=== PATIENT | male | born 1945 | race African-American/Black ===

== ENCOUNTER 2016-08-07 18:10 | Inpatient (IN) | payer MEDICARE, MEDICAID ==
[2016-08-07] MEDS ORDERED: NS 0.9% 1000 ML* 1,000 ML IV ONE ×3 (18:45→22:47)
[2016-08-07] MEDS ORDERED: cefTRIAXone(*) 1 GM in NS 0.9% 50 ML* 50 ML IVPB ONE (18:45)
[2016-08-07] MEDS ORDERED: Acetaminophen TAB* 325 MG PO ONE (18:45)
[2016-08-07 19:08] LABS: Hematocrit 41 % (42-52); Hemoglobin 13.5 g/dl (14.0-18.0); Mean Corpuscular HGB Conc 33 g/dl (31-36); Mean Corpuscular Hemoglobin 31 pg (27-31); Mean Corpuscular Volume 93 fL (80-94); Mean Platelet Volume 10 um3 (7.4-10.4); Red Blood Count 4.35 10^6/ul (4.0-5.4); Red Cell Distribution Width 13 % (10.5-15); White Blood Count 7.4 10^3/ul (3.5-10.8)
--- NOTE | 2016-08-07 19:16 | RAD ---
HISTORY: Fever COMPARISONS: December 07, 2014 VIEWS:1: Single frontal portable view of the chest at 7:11 PM FINDINGS: LINES AND TUBES: None. CARDIOMEDIASTINAL SILHOUETTE: The cardiomediastinal silhouette is normal for portable technique. PLEURA: The costophrenic angles are sharp. No pleural abnormalities are noted. LUNG PARENCHYMA: There is hyperinflation. ABDOMEN: The upper abdomen is clear. There is no subphrenic gas. BONES AND SOFT TISSUES: No bone or soft tissue abnormalities are noted. IMPRESSION: HYPERINFLATION CONSISTENT WITH COPD. NO ACTIVE CARDIOPULMONARY DISEASE.
[2016-08-07 19:24] LABS: Albumin 3.6 g/dL (3.2-5.2); BUN/Creatinine Ratio 20.2 (8-20); C Reactive Protein 19.91 mg/L (< 5.00); Calcium 9.1 mg/dL (8.6-10.3); EGFR African American 107.8 (>60); EGFR Non-African American 83.8 (>60); Globulin 4.7 g/dL (2-4); Potassium 4.5 mmol/L (3.5-5.0); Total Bilirubin 0.6 mg/dL (0.2-1.0); Total Protein 8.3 g/dL (6.4-8.9)
[2016-08-07 20:02] LABS: Erythrocyte Sed Rate 72 mm/Hr (0-40)
[2016-08-07 21:04] LABS: Urine Bacteria Absent (Absent); Urine Bilirubin Negative (Negative); Urine Glucose Negative (Negative); Urine Nitrite Negative (Negative)
[2016-08-07] MEDS ORDERED: Ondansetron INJ* 2 MG/ML VIAL IV PRN (22:47)
[2016-08-07] MEDS ORDERED: Al Hydrox/Mg Hydrox/Simet LIQ* 30 ML UDC PO PRN (22:47)
[2016-08-07] MEDS ORDERED: Senna TAB PO PRN (22:47)
[2016-08-07] MEDS ORDERED: Magnesium Hydroxide LIQ* 30 ML UDC PO PRN (22:47)
[2016-08-07] MEDS ORDERED: Morphine INJ* 2 MG/ML 1 ML SYRINGE IV PRN (22:47)
[2016-08-07] MEDS ORDERED: oxyCODONE/Acetamin 5/325 MG* TAB PO PRN (22:47)
[2016-08-07] MEDS ORDERED: Acetaminophen TAB* 325 MG PO PRN (22:47)
[2016-08-07] MEDS ORDERED: Docusate CAP* 100 MG PO PRN (22:47)
[2016-08-07] MEDS ORDERED: Vancomycin(*) 1,000 MG in NS 0.9% 250 ML* 250 ML IVPB ONE (22:49)
[2016-08-07] MEDS ORDERED: Zosyn per Pharmacy* NOTE FOLLOW UP SCH (23:00)
[2016-08-07] MEDS ORDERED: Vancomycin per Pharmacy* NOTE FOLLOW UP SCH (23:00)
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
[2016-08-08] MEDS: NS 0.9% 1000 ML* 1,000 ML IV SCH ×3 (01:21→19:29)
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
[2016-08-08] MEDS ORDERED: Iohexol 300* (CONTRAST) 10 ML SDV IV ONE (03:51)
[2016-08-08] MEDS ORDERED: ZOSYN 3.375 GM Q8H per EXTENDED INFUSION IVPB SCH ×2 (05:30)
[2016-08-08] MEDS: Heparin VIAL(*) 5000 UNITS/ML VIAL (FIVE THOUSAND) SUBCUT SCH ×4 (05:46→21:27)
--- NOTE | 2016-08-08 06:43 | PN ---
Progress Note - Progress Note Note: CT scan showed reactive adenopathy in inguinal region. Now concern for osteo in his RLE - will order MR of lower ext to R/O osteo
[2016-08-08] MEDS: ZOSYN 3.375 GM Q6H - Intermittant 30 min Infusion IVPB SCH ×4 (08:04→13:45)
[2016-08-08 08:36] LABS: Hematocrit 30 % (42-52); Hemoglobin 10.1 g/dl (14.0-18.0); Mean Corpuscular HGB Conc 34 g/dl (31-36); Mean Corpuscular Hemoglobin 32 pg (27-31); Mean Corpuscular Volume 94 fL (80-94); Mean Platelet Volume 10 um3 (7.4-10.4); Red Blood Count 3.19 10^6/ul (4.0-5.4); Red Cell Distribution Width 13 % (10.5-15); White Blood Count 3.8 10^3/ul (3.5-10.8)
[2016-08-08 08:47] LABS: BUN/Creatinine Ratio 20.9 (8-20); Calcium 7.4 mg/dL (8.6-10.3); EGFR African American 149.5 (>60); EGFR Non-African American 116.3 (>60); Potassium 3.9 mmol/L (3.5-5.0)
--- NOTE | 2016-08-08 09:09 | RAD ---
CLINICAL HISTORY: Right groin lymphadenopathy COMPARISON: Most recent comparison CT examination is dated October 24, 2014 TECHNIQUE: Contrast enhanced CT examination of the abdomen and pelvis from the lung bases through the initial tuberosities. The patient received 73 mL Omnipaque 300 intravenously prior to imaging.The patient received oral contrast as well prior to imaging. FINDINGS: VISUALIZED LUNG BASES: The lung bases exhibit diffuse centrilobular emphysematous changes there is mild cardiomegaly. ABDOMEN AND PELVIS: In the right lobe of the liver there is a 1.5 cm low-density focus that appears to correspond to a peripherally enhancing lesion on the previous CT examination. The remainder of the liver is homogenous in attenuation. The spleen, pancreas and adrenal glands are grossly normal in appearance. The gallbladder is normal. The kidneys are normal in appearance without focal mass, calcification or signs of hydronephrosis. The oral contrast has progressed to the distal small bowel and proximal colon. The small and large bowel are not distended. The patient's normal appendix is identified in the right lower quadrant with gas and oral contrast in the lumen (image 56). There are enlarged lymph nodes in the bilateral inguinal region measuring up to 2.1 x 2.5 cm in the axial plane (image 78). There is no definite retroperitoneal or mesenteric lymphadenopathy. The pelvic viscera is normal in appearance. The abdominal aorta and iliac arteries are normal in course and diameter. In the inferior vena cava there is what appears to be a Cook Reyes Tulip retrievable IVC filter. Depicted best on the sagittal plane images (image 49) there appears to be approximately 27 degrees of posterior tilt. Degenerative changes include multilevel loss of intervertebral disc height, interval compression deformity of the T12 vertebral body and vacuum disc phenomenon at L5/S1. The 3 medullary reduction screws overlying the left femur are appropriately aligned and intact.There are no sinister bone lesions. IMPRESSION: 1. There are again seen enlarged lymph nodes in the right greater than left inguinal region similar in appearance to the October 24, 2014 CT examination. These are nonspecific but appear readily accessible for fine-needle aspiration if deemed clinically warranted. 2. The patient has what appears to be a Cook Reyes Tulip retrievable IVC filter that has been present at least since the February 15, 2008 CT examination. It is advisable that IVC filters be removed when they are no longer clinically necessary. Please correlate to the patient's current indications for his filter. 3. Additional chronic and degenerative changes as described in body the report.
[2016-08-08] MEDS ORDERED: Vancomycin(*) 1,000 MG in NS 0.9% 250 ML* 250 ML IVPB SCH (14:00)
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
--- NOTE | 2016-08-08 17:52 | PN ---
Subjective Date of Service: 08/08/16 Interval History: Pt is feeling better today. He states the pain in his groin is improved but still quite tender. He is concerned about the very small ulceration on the lateral aspect of the R ankle getting worse with the unna boot off. He is also concerned about his weight loss-he states he is down to 120lb from 135lb recently. He states he has had a slight decrease in his appetite. Objective Active Medications: Acetaminophen (Tylenol Tab*) 650 mg PO Q4H PRN PRN Reason: FEVER/PAIN Al Hydrox/Mg Hydrox/Simethicone (Maalox Plus*) 30 ml PO Q6H PRN PRN Reason: INDIGESTION Docusate Sodium (Colace Cap*) 100 mg PO BID PRN PRN Reason: CONSTIPATION Heparin Sodium (Porcine) (Heparin Vial(*)) 5,000 units SUBCUT Q8HR [facility] Last Admin: 08/08/16 14:07 Dose: Not Given Sodium Chloride (Ns 0.9% 1000 Ml*) 1,000 mls @ 125 mls/hr IV PER RATE [facility] Last Admin: 08/08/16 01:22 Dose: 125 mls/hr Vancomycin HCl 1,000 mg/ (Sodium Chloride) 250 mls @ 166.667 mls/hr IVPB Q12H [facility] Last Admin: 08/08/16 15:09 Dose: 166.667 mls/hr Piperacillin Sod/Tazobactam (Sod 3.375 gm/ Sodium Chloride) 100 mls @ 200 mls/ hr IVPB Q6H [facility] Last Admin: 08/08/16 13:45 Dose: 200 mls/hr Magnesium Hydroxide (Milk Of Magnteresa Liq*) 30 ml PO Q4H PRN PRN Reason: CONSTIPATION Morphine Sulfate (Morphine Inj (Syringe)*) 2 mg IV Q4H PRN PRN Reason: PAIN Ondansetron HCl (Zofran Inj*) 4 mg IV Q4H PRN PRN Reason: NAUSEA/VOMITING Oxycodone/Acetaminophen (Percocet 5/325 Tab*) 1 tab PO Q4H PRN PRN Reason: Pain Pharmacy Consult (Vancomycin Per Pharmacy*) 1 note FOLLOW UP .VANC PER PHARMACY [facility] Pharmacy Consult (Zosyn Per Pharmacy*) 1 note FOLLOW UP .ZOSYN PER PHARMACY [facility] Pharmacy Profile Note (Vancomycin Trough Check) 1 note FOLLOW UP .ENTER TIME ONE Stop: 08/09/16 13:31 Senna (Senokot Tab*) 1 tab PO BID PRN PRN Reason: CONSTIPATION Vital Signs 08/07/16 08/07/16 08/08/16 23:00 23:30 00:44 Temperature 98.5 F Pulse Rate 65 65 61 Respiratory 16 26 20 Rate Blood Pressure 95/57 93/54 95/55 (mmHg) O2 Sat by Pulse 99 97 97 Oximetry 08/08/16 08/08/16 08/08/16 07:21 08:00 11:18 Temperature 98.7 F 99.4 F Pulse Rate 62 64 Respiratory 16 22 16 Rate Blood Pressure 101/55 100/49 (mmHg) O2 Sat by Pulse 99 99 100 Oximetry 08/08/16 08/08/16 12:15 16:19 Temperature 99.5 F 98.7 F Pulse Rate 68 Respiratory 16 Rate Blood Pressure 104/52 104/61 (mmHg) O2 Sat by Pulse 100 Oximetry Oxygen Devices in Use Now: None Appearance: Thin, elderly male sitting up in bed, NAD Eyes: No Scleral Icterus Ears/Nose/Mouth/Throat: Mucous Membranes Moist Respiratory: Symmetrical Chest Expansion and Respiratory Effort, Clear to Auscultation Cardiovascular: NL Sounds; No Murmurs; No JVD, RRR, No Edema Abdominal: NL Sounds; No Tenderness; No Distention Lymphatic: - - + R groin adenopathy-firm and tender Extremities: No Clubbing, Cyanosis Skin: No Nodules or Sclerosis, - - small few millimeter ulceration to R lateral ankle, no surrounding erythema, no drainage Neurological: Alert and Oriented x 3 Result Diagrams: 08/08/16 08:01 08/08/16 08:02 Additional Lab and Data: Lab Results 08/07/16 08/07/16 08/07/16 Range/Units 18:58 18:58 18:58 WBC 7.4 (3.5-10.8) 10^3/ul RBC 4.35 (4.0-5.4) 10^6/ul Hgb 13.5 L (14.0-18.0) g/dl Hct 41 L (42-52) % MCV 93 (80-94) fL MCH 31 (27-31) pg MCHC 33 (31-36) g/dl RDW 13 (10.5-15) % Plt Count 147 L (150-450) 10^3/ul MPV 10 (7.4-10.4) um3 Neut % (Auto) 85.6 H (38-83) % Lymph % (Auto) 5.9 L (25-47) % [place] % (Auto) 7.7 (1-9) % Eos % (Auto) 0.2 (0-6) % Baso % (Auto) 0.6 (0-2) % Absolute Neuts (auto) 6.3 (1.5-7.7) 10^3/ul Absolute Lymphs (auto) 0.4 L (1.0-4.8) 10^3/ul Absolute Monos (auto) 0.6 (0-0.8) 10^3/ul Absolute Eos (auto) 0 (0-0.6) 10^3/ul Absolute Basos (auto) 0 (0-0.2) 10^3/ul Absolute Nucleated RBC 0 10^3/ul Nucleated RBC % 0 ESR 72 H (0-40) mm/Hr INR (Anticoag Therapy) 0.96 (0.89-1.11) APTT 29.6 (26.0-36.3) seconds Fibrinogen 441 H (110.8-404.3) mg/dL Sodium 131 L (133-145) mmol/L Potassium 4.5 (3.5-5.0) mmol/L Chloride 99 L (101-111) mmol/L Carbon Dioxide 25 (22-32) mmol/L Anion Gap 7 (2-11) mmol/L BUN 18 (6-24) mg/dL Creatinine 0.89 (0.67-1.17) mg/dL Est GFR ( Amer) 107.8 (>60) Est GFR (Non-Af Amer) 83.8 (>60) BUN/Creatinine Ratio 20.2 H (8-20) Glucose 93 (70-100) mg/dL Lactic Acid (0.5-2.0) mmol/L Calcium 9.1 (8.6-10.3) mg/dL Total Bilirubin 0.60 (0.2-1.0) mg/dL AST 17 (13-39) U/L ALT 9 (7-52) U/L Alkaline Phosphatase 71 (34-104) U/L Troponin I 0.00 (<0.04) ng/mL C-Reactive Protein 19.91 H (< 5.00) mg/L B-Natriuretic Peptide ( - 100) pg/mL Total Protein 8.3 (6.4-8.9) g/dL Albumin 3.6 (3.2-5.2) g/dL Globulin 4.7 H (2-4) g/dL Albumin/Globulin Ratio 0.8 L (1-3) Prealbumin 14 L (18-38) mg/dL Urine Color Urine Appearance Urine pH (5-9) Ur Specific [place] (1.010-1.030) Urine Protein (Negative) Urine Ketones (Negative) Urine Blood (Negative) Urine Nitrate (Negative) Urine Bilirubin (Negative) Urine Urobilinogen (Negative) Ur Leukocyte Esterase (Negative) Urine WBC (Auto) (Absent) Urine RBC (Auto) (Absent) Ur Squamous Epith Cells (Absent) Urine Bacteria (Absent) Hyaline Casts (Absent) Urine Glucose (Negative) 08/07/16 08/07/16 08/07/16 Range/Units 18:58 18:58 20:08 WBC (3.5-10.8) 10^3/ul RBC (4.0-5.4) 10^6/ul Hgb (14.0-18.0) g/dl Hct (42-52) % MCV (80-94) fL MCH (27-31) pg MCHC (31-36) g/dl RDW (10.5-15) % Plt Count (150-450) 10^3/ul MPV (7.4-10.4) um3 Neut % (Auto) (38-83) % Lymph % (Auto) (25-47) % [place] % (Auto) (1-9) % Eos % (Auto) (0-6) % Baso % (Auto) (0-2) % Absolute Neuts (auto) (1.5-7.7) 10^3/ul Absolute Lymphs (auto) (1.0-4.8) 10^3/ul Absolute Monos (auto) (0-0.8) 10^3/ul Absolute Eos (auto) (0-0.6) 10^3/ul Absolute Basos (auto) (0-0.2) 10^3/ul Absolute Nucleated RBC 10^3/ul Nucleated RBC % ESR (0-40) mm/Hr INR (Anticoag Therapy) (0.89-1.11) APTT (26.0-36.3) seconds Fibrinogen (110.8-404.3) mg/dL Sodium (133-145) mmol/L Potassium (3.5-5.0) mmol/L Chloride (101-111) mmol/L Carbon Dioxide (22-32) mmol/L Anion Gap (2-11) mmol/L BUN (6-24) mg/dL Creatinine (0.67-1.17) mg/dL Est GFR ( Amer) (>60) Est GFR (Non-Af Amer) (>60) BUN/Creatinine Ratio (8-20) Glucose (70-100) mg/dL Lactic Acid 1.2 (0.5-2.0) mmol/L Calcium (8.6-10.3) mg/dL Total Bilirubin (0.2-1.0) mg/dL AST (13-39) U/L ALT (7-52) U/L Alkaline Phosphatase (34-104) U/L Troponin I (<0.04) ng/mL C-Reactive Protein (< 5.00) mg/L B-Natriuretic Peptide 325 H ( - 100) pg/mL Total Protein (6.4-8.9) g/dL Albumin (3.2-5.2) g/dL Globulin (2-4) g/dL Albumin/Globulin Ratio (1-3) Prealbumin (18-38) mg/dL Urine Color Yellow Urine Appearance Clear Urine pH 7.0 (5-9) Ur Specific [place] 1.021 (1.010-1.030) Urine Protein 1+(30 mg/dl) H (Negative) Urine Ketones Negative (Negative) Urine Blood Negative (Negative) Urine Nitrate Negative (Negative) Urine Bilirubin Negative (Negative) Urine Urobilinogen Negative (Negative) Ur Leukocyte Esterase Negative (Negative) Urine WBC (Auto) Trace(0-5/hpf) (Absent) Urine RBC (Auto) Absent (Absent) Ur Squamous Epith Cells Present H (Absent) Urine Bacteria Absent (Absent) Hyaline Casts Present H (Absent) Urine Glucose Negative (Negative) Microbiology and Other Data: Microbiology 08/08/16 04:10 Nasal Screen MRSA (PCR)([facility]) - Final Nasal Mrsa Negative Assess/Plan/Problems-Billing Mr Jan Mckenzie is a 71 yo M who has a h/o chronic venous stasis changes/ulcerations who presented to the ER with c/o weakness. - Patient Problems (1) Weakness Current Visit: Yes Status: Acute Code(s): R53.1 - WEAKNESS SNOMED Code(s) : 06705363 Comment: I am suspicous that the patient does not actually have cellulitis. ? DVT ? secondary to malnutrition ? malignancy. I believe he needs further work up for other causes of his weakness. Will continue treating for cellulitis but change to cefazolin and monitor for signs of infection. (2) Adenopathy Current Visit: Yes Status: Chronic Code(s): R59.1 - GENERALIZED ENLARGED LYMPH NODES SNOMED Code(s): 73588701 Comment: The patient has significant R groin adenopathy. He has a very small ulceration of the R lateral malleolus but I am not sure that this is what led to his adenopathy. He states that there has been adenopathy off and on for the last couple months. This in conjunction with his weight loss and malnutrition ( pre-albumin of 14) makes me concerned for possible malignancy. (3) DVT prophylaxis Current Visit: Yes Status: Acute Onset Date: 01/17/14 Code(s): [id number] - SNOMED Code(s): 227157708 Comment: SQ heparin (4) Patient is full code Current Visit: Yes Status: Acute Onset Date: 11/22/14 Code(s): Z78.9 - OTHER SPECIFIED HEALTH STATUS SNOMED Code(s): 235855274
[2016-08-08] MEDS: ceFAZolin VIAL(*) 1 GM in NS 0.9% 50 ML* 50 ML IVPB SCH (19:28)
--- NOTE | 2016-08-08 19:28 | RAD ---
HISTORY: Right lower extremity pain TECHNIQUE: Multiple transverse and longitudinal ultrasound images were obtained of the veins of the right lower extremity using grayscale, color Doppler, and spectral Doppler imaging with and without compression and with augmentation. FINDINGS: VEINS: The common femoral vein, deep femoral vein, femoral vein and popliteal vein are compressible throughout their course, with normal flow on color Doppler imaging and normal response to augmentation on spectral Doppler imaging. SOFT TISSUES: Grossly normal. No large popliteal fossa cyst was identified. IMPRESSION: No sonographic evidence of deep vein thrombosis.
[2016-08-09] MEDS: ceFAZolin VIAL(*) 1 GM in NS 0.9% 50 ML* 50 ML IVPB SCH ×5 (00:11→23:44)
[2016-08-09] MEDS: NS 0.9% 1000 ML* 1,000 ML IV SCH ×3 (04:53→22:48)
[2016-08-09] MEDS: Heparin VIAL(*) 5000 UNITS/ML VIAL (FIVE THOUSAND) SUBCUT SCH ×3 (05:04→21:44)
--- NOTE | 2016-08-09 10:41 | PN ---
Subjective Date of Service: 08/09/16 Interval History: Pt is feeling better in that he is slightly less weak. He states the lymph nodes in his R groin are still quite enlarged and painful. He had a normal BM today. He stats he is eating ok. Objective Active Medications: Acetaminophen (Tylenol Tab*) 650 mg PO Q4H PRN PRN Reason: FEVER/PAIN Al Hydrox/Mg Hydrox/Simethicone (Maalox Plus*) 30 ml PO Q6H PRN PRN Reason: INDIGESTION Docusate Sodium (Colace Cap*) 100 mg PO BID PRN PRN Reason: CONSTIPATION Heparin Sodium (Porcine) (Heparin Vial(*)) 5,000 units SUBCUT Q8HR [facility] Last Admin: 08/09/16 05:04 Dose: Not Given Sodium Chloride (Ns 0.9% 1000 Ml*) 1,000 mls @ 125 mls/hr IV PER RATE [facility] Last Admin: 08/09/16 04:53 Dose: 125 mls/hr Cefazolin Sodium 1 gm/ Sodium (Chloride) 50 mls @ 200 mls/hr IVPB Q6H [facility] Last Admin: 08/09/16 05:03 Dose: 200 mls/hr Magnesium Hydroxide (Milk Of Magnteresa Liq*) 30 ml PO Q4H PRN PRN Reason: CONSTIPATION Morphine Sulfate (Morphine Inj (Syringe)*) 2 mg IV Q4H PRN PRN Reason: PAIN Ondansetron HCl (Zofran Inj*) 4 mg IV Q4H PRN PRN Reason: NAUSEA/VOMITING Oxycodone/Acetaminophen (Percocet 5/325 Tab*) 1 tab PO Q4H PRN PRN Reason: Pain Senna (Senokot Tab*) 1 tab PO BID PRN PRN Reason: CONSTIPATION Vital Signs 08/08/16 08/08/16 08/08/16 11:18 12:15 16:19 Temperature 99.4 F 99.5 F 98.7 F Pulse Rate 64 68 Respiratory 16 16 Rate Blood Pressure 100/49 104/52 104/61 (mmHg) O2 Sat by Pulse 100 100 Oximetry 08/08/16 08/08/16 08/08/16 20:00 20:09 22:33 Temperature 99.9 F 99.5 F Pulse Rate 69 68 Respiratory 16 17 16 Rate Blood Pressure 111/59 106/59 (mmHg) O2 Sat by Pulse 97 100 97 Oximetry 08/09/16 04:04 Temperature 97.3 F Pulse Rate 65 Respiratory 20 Rate Blood Pressure 109/62 (mmHg) O2 Sat by Pulse 100 Oximetry Oxygen Devices in Use Now: None Appearance: Elderly thin male sitting up in bed, NAD Eyes: No Scleral Icterus Ears/Nose/Mouth/Throat: Mucous Membranes Moist Respiratory: Symmetrical Chest Expansion and Respiratory Effort, Clear to Auscultation Cardiovascular: NL Sounds; No Murmurs; No JVD, RRR, No Edema Abdominal: NL Sounds; No Tenderness; No Distention Extremities: No Clubbing, Cyanosis Skin: No Nodules or Sclerosis, - - ulceration of right lateral malleolus is unchanged today, no surrounding erythema, no drainage Neurological: Alert and Oriented x 3 Result Diagrams: 08/08/16 08:01 08/08/16 08:02 Additional Lab and Data: Lab Results 08/07/16 08/07/16 08/07/16 Range/Units 18:58 18:58 18:58 WBC 7.4 (3.5-10.8) 10^3/ul RBC 4.35 (4.0-5.4) 10^6/ul Hgb 13.5 L (14.0-18.0) g/dl Hct 41 L (42-52) % MCV 93 (80-94) fL MCH 31 (27-31) pg MCHC 33 (31-36) g/dl RDW 13 (10.5-15) % Plt Count 147 L (150-450) 10^3/ul MPV 10 (7.4-10.4) um3 Neut % (Auto) 85.6 H (38-83) % Lymph % (Auto) 5.9 L (25-47) % [place] % (Auto) 7.7 (1-9) % Eos % (Auto) 0.2 (0-6) % Baso % (Auto) 0.6 (0-2) % Absolute Neuts (auto) 6.3 (1.5-7.7) 10^3/ul Absolute Lymphs (auto) 0.4 L (1.0-4.8) 10^3/ul Absolute Monos (auto) 0.6 (0-0.8) 10^3/ul Absolute Eos (auto) 0 (0-0.6) 10^3/ul Absolute Basos (auto) 0 (0-0.2) 10^3/ul Absolute Nucleated RBC 0 10^3/ul Nucleated RBC % 0 ESR 72 H (0-40) mm/Hr INR (Anticoag Therapy) 0.96 (0.89-1.11) APTT 29.6 (26.0-36.3) seconds Fibrinogen 441 H (110.8-404.3) mg/dL Sodium 131 L (133-145) mmol/L Potassium 4.5 (3.5-5.0) mmol/L Chloride 99 L (101-111) mmol/L Carbon Dioxide 25 (22-32) mmol/L Anion Gap 7 (2-11) mmol/L BUN 18 (6-24) mg/dL Creatinine 0.89 (0.67-1.17) mg/dL Est GFR ( Amer) 107.8 (>60) Est GFR (Non-Af Amer) 83.8 (>60) BUN/Creatinine Ratio 20.2 H (8-20) Glucose 93 (70-100) mg/dL Lactic Acid (0.5-2.0) mmol/L Calcium 9.1 (8.6-10.3) mg/dL Total Bilirubin 0.60 (0.2-1.0) mg/dL AST 17 (13-39) U/L ALT 9 (7-52) U/L Alkaline Phosphatase 71 (34-104) U/L Troponin I 0.00 (<0.04) ng/mL C-Reactive Protein 19.91 H (< 5.00) mg/L B-Natriuretic Peptide ( - 100) pg/mL Total Protein 8.3 (6.4-8.9) g/dL Albumin 3.6 (3.2-5.2) g/dL Globulin 4.7 H (2-4) g/dL Albumin/Globulin Ratio 0.8 L (1-3) Prealbumin 14 L (18-38) mg/dL Urine Color Urine Appearance Urine pH (5-9) Ur Specific [place] (1.010-1.030) Urine Protein (Negative) Urine Ketones (Negative) Urine Blood (Negative) Urine Nitrate (Negative) Urine Bilirubin (Negative) Urine Urobilinogen (Negative) Ur Leukocyte Esterase (Negative) Urine WBC (Auto) (Absent) Urine RBC (Auto) (Absent) Ur Squamous Epith Cells (Absent) Urine Bacteria (Absent) Hyaline Casts (Absent) Urine Glucose (Negative) 08/07/16 08/07/16 08/07/16 Range/Units 18:58 18:58 20:08 WBC (3.5-10.8) 10^3/ul RBC (4.0-5.4) 10^6/ul Hgb (14.0-18.0) g/dl Hct (42-52) % MCV (80-94) fL MCH (27-31) pg MCHC (31-36) g/dl RDW (10.5-15) % Plt Count (150-450) 10^3/ul MPV (7.4-10.4) um3 Neut % (Auto) (38-83) % Lymph % (Auto) (25-47) % [place] % (Auto) (1-9) % Eos % (Auto) (0-6) % Baso % (Auto) (0-2) % Absolute Neuts (auto) (1.5-7.7) 10^3/ul Absolute Lymphs (auto) (1.0-4.8) 10^3/ul Absolute Monos (auto) (0-0.8) 10^3/ul Absolute Eos (auto) (0-0.6) 10^3/ul Absolute Basos (auto) (0-0.2) 10^3/ul Absolute Nucleated RBC 10^3/ul Nucleated RBC % ESR (0-40) mm/Hr INR (Anticoag Therapy) (0.89-1.11) APTT (26.0-36.3) seconds Fibrinogen (110.8-404.3) mg/dL Sodium (133-145) mmol/L Potassium (3.5-5.0) mmol/L Chloride (101-111) mmol/L Carbon Dioxide (22-32) mmol/L Anion Gap (2-11) mmol/L BUN (6-24) mg/dL Creatinine (0.67-1.17) mg/dL Est GFR ( Amer) (>60) Est GFR (Non-Af Amer) (>60) BUN/Creatinine Ratio (8-20) Glucose (70-100) mg/dL Lactic Acid 1.2 (0.5-2.0) mmol/L Calcium (8.6-10.3) mg/dL Total Bilirubin (0.2-1.0) mg/dL AST (13-39) U/L ALT (7-52) U/L Alkaline Phosphatase (34-104) U/L Troponin I (<0.04) ng/mL C-Reactive Protein (< 5.00) mg/L B-Natriuretic Peptide 325 H ( - 100) pg/mL Total Protein (6.4-8.9) g/dL Albumin (3.2-5.2) g/dL Globulin (2-4) g/dL Albumin/Globulin Ratio (1-3) Prealbumin (18-38) mg/dL Urine Color Yellow Urine Appearance Clear Urine pH 7.0 (5-9) Ur Specific [place] 1.021 (1.010-1.030) Urine Protein 1+(30 mg/dl) H (Negative) Urine Ketones Negative (Negative) Urine Blood Negative (Negative) Urine Nitrate Negative (Negative) Urine Bilirubin Negative (Negative) Urine Urobilinogen Negative (Negative) Ur Leukocyte Esterase Negative (Negative) Urine WBC (Auto) Trace(0-5/hpf) (Absent) Urine RBC (Auto) Absent (Absent) Ur Squamous Epith Cells Present H (Absent) Urine Bacteria Absent (Absent) Hyaline Casts Present H (Absent) Urine Glucose Negative (Negative) Microbiology and Other Data: Microbiology 08/08/16 04:10 Nasal Screen MRSA (PCR)([facility]) - Final Nasal Mrsa Negative Assess/Plan/Problems-Billing Mr Jan Mckenzie is a 71 yo M who has a h/o chronic venous stasis changes/ulcerations who presented to the ER with c/o weakness. - Patient Problems (1) Weakness Current Visit: Yes Status: Acute Code(s): R53.1 - WEAKNESS SNOMED Code(s) : 47218165 Comment: The etiology of his weakness is still not clear. He is improving on Abx but I am not quite sure what is getting treated. I have a very low suspicion for cellulitis/osteomyelitis but will get ID consult tomorrow for further recommendations. I am concerned by the groin lymphadenopathy as he tells me it has been there off/on for a few months. ? need for biopsy of the lymph node. ? weakness secondary to high fever and viral illness. Will continue current treatment regimen and monitor for anything to declare itself. (2) Adenopathy Current Visit: Yes Status: Chronic Code(s): R59.1 - GENERALIZED ENLARGED LYMPH NODES SNOMED Code(s): 34027930 Comment: The patient has significant R groin adenopathy and less prominent L groin adenopathy. ID consultation tomorrow- if not felt to be reactive may need lymph node biopsy. (3) DVT prophylaxis Current Visit: Yes Status: Acute Onset Date: 01/17/14 Code(s): OKP1743 - SNOMED Code(s): 582910909 Comment: SQ heparin-pt has IVC filter in place and this likely should be removed. (4) Patient is full code Current Visit: Yes Status: Acute Onset Date: 11/22/14 Code(s): Z78.9 - OTHER SPECIFIED HEALTH STATUS SNOMED Code(s): 188219990
[2016-08-09] MEDS ORDERED: Vancomycin Trough Check NOTE FOLLOW UP ONE (13:30)
[2016-08-10] MEDS: Heparin VIAL(*) 5000 UNITS/ML VIAL (FIVE THOUSAND) SUBCUT SCH (05:05)
[2016-08-10] MEDS: ceFAZolin VIAL(*) 1 GM in NS 0.9% 50 ML* 50 ML IVPB SCH (05:59)
[2016-08-10 06:04] LABS: Hematocrit 30 % (42-52); Hemoglobin 10.1 g/dl (14.0-18.0); Mean Corpuscular HGB Conc 34 g/dl (31-36); Mean Corpuscular Hemoglobin 31 pg (27-31); Mean Corpuscular Volume 93 fL (80-94); Mean Platelet Volume 10 um3 (7.4-10.4); Red Blood Count 3.25 10^6/ul (4.0-5.4); Red Cell Distribution Width 13 % (10.5-15); White Blood Count 3.8 10^3/ul (3.5-10.8)
[2016-08-10 06:30] LABS: BUN/Creatinine Ratio 26.1 (8-20); Blood Urea Nitrogen 12 mg/dL (6-24); C Reactive Protein 12.52 mg/L (< 5.00); CO2 Carbon Dioxide 24 mmol/L (22-32); Calcium 7.9 mg/dL (8.6-10.3); Chloride 109 mmol/L (101-111); EGFR African American 230.8 (>60); EGFR Non-African American 179.5 (>60); Glucose 86 mg/dL (70-100); Potassium 3.9 mmol/L (3.5-5.0); Sodium 132 mmol/L (133-145)
[2016-08-10] MEDS: NS 0.9% 1000 ML* 1,000 ML IV SCH (10:19)
--- NOTE | 2016-08-10 13:29 | CONS ---
CONSULTATION REPORT: DATE OF CONSULT: 08/10/16 REQUESTING PHYSICIAN: Dr. Connolly. CONSULTING SERVICE: Infectious Disease. REASON FOR CONSULTATION: Fever, adenopathy. IMPRESSION: 1. Sudden onset of headache, fever, and malaise. His blood cultures are negative. His urinalysis is negative. He has no pain except for in his right groin. He has bilateral inguinal lymphadenopathy that has come and gone over the years and is more persistent and painful recently. He has no other adenopathy on exam and none other seen on a CT of the abdomen and pelvis. His fever may be related to inguinal nodes. He does have a very small right lateral malleolus ulcer with a recent Unna boot without evidence of cellulitis or soft tissue infection. I do not think that is the source of his symptoms. 2. Bilateral inguinal lymphadenopathy with mild anemia, question CLL. He has had an HIV test 2 years ago as workup of this adenopathy, which was negative. Syphilis was a consideration. Other hematologic malignancy. 3. Bilateral lower extremity venous insufficiency with lymphedema. 4. Inferior vena cava filter. RECOMMENDATIONS: Stop the antibiotics. I did discuss with him that a core biopsy would be helpful to try and determine if there is hematologic malignancy versus infection versus reactive change present in his lymph node. HISTORY OF PRESENT ILLNESS: This is a 71-year-old man admitted with fever and malaise. He was recently in [place], did some hiking. While he was there about a month ago, he developed what he felt was an ulcer on his right lateral malleolus. He does have venous insufficiency so this is nothing new for him. When he got back, he was seen at the wound clinic, had an Unna boot put on last week, seemed fine. On Wednesday, he developed, headache, fever, malaise, myalgia, and worsening of right and left inguinal lymphadenopathy. He has had these lymph nodes in his groin for 3 or 4 years. Sometimes, they flare up and they have been more bothersome pain- breaux recently. He has had decreased appetite and about a 10-pound weight loss in the last 2 or 3 weeks as well. He has had no nausea, vomiting, abdominal pain or diarrhea. Here, he had a CT of the abdomen and pelvis which showed the inguinal nodes, showed an IVC filter. He had an ultrasound of the right leg, showed no DVT. He had a fever of 39.4 on arrival and nothing since then. PAST MEDICAL HISTORY: 1. History of DVT and IVC filter placement. 2. Chronic venous insufficiency of bilateral legs. 3. Left leg fracture in the 1970s. 4. Status post inguinal hernia repair. 5. Status post left hip arthroplasty. MEDICATIONS: 1. Cefazolin 1 g every 6 hours. 2. Heparin subcutaneous injection. 3. Docusate. ALLERGIES: No known drug allergies. FAMILY HISTORY: No recurrent infections. SOCIAL HISTORY: Lives in [place]. Recently, he has been in [place] visiting his brother, some hiking there. REVIEW OF SYSTEMS: A full review of systems was negative except as noted above. PHYSICAL EXAM: Vital Signs: Temperature 37, heart rate 60, respiratory rate 16 , blood pressure 112/62, O2 sat 100% on room air. General: He is awake, not in distress. Neurologic: He is oriented x3. He follows all commands. HEENT: There is no conjunctival hemorrhage. Oropharynx without lesions. Neck is supple without nuchal rigidity. Lymph Nodes: There is bilateral inguinal lymphadenopathy. There are multiple 1 to 2 cm nodes which are mildly tender. They are firm, mobile, not erythematous or warm. There is no axillary, epitrochlear, inguinal or supraclavicular lymphadenopathy. Heart is regular rate and rhythm without murmurs, rubs or gallops. Lungs: Clear to auscultation bilaterally. Abdomen is soft, nontender, nondistended without hepatosplenomegaly. Skin: There is no rash or splinter hemorrhage. Genitourinary: There is no genital ulcer. There is no testicular mass or tenderness. DIAGNOSTIC STUDIES/LAB DATA: White blood cell count 3.8, hemoglobin 10, platelets 107, creatinine 0.4, CRP 12. Please see impressions and recommendations outlined above, which I have discussed with Dr. Connolly. Thanks for asking me to see Mr. Jan Mckenzie in consultation. [id number]/[facility] [place] #: [id number] DEJON
[2016-08-10] MEDS ORDERED: fentaNYL* 50 MCG/ML 2 ML VIAL (100 MCG VIAL) ONE (13:39)
--- NOTE | 2016-08-10 13:41 | PN ---
Subjective Date of Service: 08/10/16 Interval History: Pt is feeling better each day in terms of his weakness. He still c/o pain in his R groin. No CP or SOB. Objective Active Medications: Acetaminophen (Tylenol Tab*) 650 mg PO Q4H PRN PRN Reason: FEVER/PAIN Al Hydrox/Mg Hydrox/Simethicone (Maalox Plus*) 30 ml PO Q6H PRN PRN Reason: INDIGESTION Docusate Sodium (Colace Cap*) 100 mg PO BID PRN PRN Reason: CONSTIPATION Magnesium Hydroxide (Milk Of Magnesia Liq*) 30 ml PO Q4H PRN PRN Reason: CONSTIPATION Morphine Sulfate (Morphine Inj (Syringe)*) 2 mg IV Q4H PRN PRN Reason: PAIN Ondansetron HCl (Zofran Inj*) 4 mg IV Q4H PRN PRN Reason: NAUSEA/VOMITING Oxycodone/Acetaminophen (Percocet 5/325 Tab*) 1 tab PO Q4H PRN PRN Reason: Pain Senna (Senokot Tab*) 1 tab PO BID PRN PRN Reason: CONSTIPATION Vital Signs 08/09/16 08/09/16 08/09/16 15:47 20:30 21:26 Temperature 98.2 F 98.0 F Pulse Rate 63 61 Respiratory 17 16 18 Rate Blood Pressure 124/68 126/77 (mmHg) O2 Sat by Pulse 100 100 Oximetry 08/09/16 08/10/16 08/10/16 23:42 07:15 08:00 Temperature 98.2 F 97.5 F Pulse Rate 64 57 Respiratory 16 18 Rate Blood Pressure 114/63 111/68 (mmHg) O2 Sat by Pulse 100 97 Oximetry Oxygen Devices in Use Now: None Appearance: Elderly male sitting up in bed, NAD Eyes: No Scleral Icterus Ears/Nose/Mouth/Throat: Mucous Membranes Moist Respiratory: Symmetrical Chest Expansion and Respiratory Effort, Clear to Auscultation Cardiovascular: NL Sounds; No Murmurs; No JVD, RRR, No Edema Abdominal: NL Sounds; No Tenderness; No Distention Lymphatic: - - + R groin adenopathy-less prominent today Extremities: No Clubbing, Cyanosis Skin: No Rash or Ulcers, No Nodules or Sclerosis Neurological: Alert and Oriented x 3 Result Diagrams: 08/10/16 05:03 08/10/16 05:03 Additional Lab and Data: Lab Results 08/07/16 08/07/16 08/07/16 Range/Units 18:58 18:58 18:58 WBC 7.4 (3.5-10.8) 10^3/ul RBC 4.35 (4.0-5.4) 10^6/ul Hgb 13.5 L (14.0-18.0) g/dl Hct 41 L (42-52) % MCV 93 (80-94) fL MCH 31 (27-31) pg MCHC 33 (31-36) g/dl RDW 13 (10.5-15) % Plt Count 147 L (150-450) 10^3/ul MPV 10 (7.4-10.4) um3 Neut % (Auto) 85.6 H (38-83) % Lymph % (Auto) 5.9 L (25-47) % [place] % (Auto) 7.7 (1-9) % Eos % (Auto) 0.2 (0-6) % Baso % (Auto) 0.6 (0-2) % Absolute Neuts (auto) 6.3 (1.5-7.7) 10^3/ul Absolute Lymphs (auto) 0.4 L (1.0-4.8) 10^3/ul Absolute Monos (auto) 0.6 (0-0.8) 10^3/ul Absolute Eos (auto) 0 (0-0.6) 10^3/ul Absolute Basos (auto) 0 (0-0.2) 10^3/ul Absolute Nucleated RBC 0 10^3/ul Nucleated RBC % 0 ESR 72 H (0-40) mm/Hr INR (Anticoag Therapy) 0.96 (0.89-1.11) APTT 29.6 (26.0-36.3) seconds Fibrinogen 441 H (110.8-404.3) mg/dL Sodium 131 L (133-145) mmol/L Potassium 4.5 (3.5-5.0) mmol/L Chloride 99 L (101-111) mmol/L Carbon Dioxide 25 (22-32) mmol/L Anion Gap 7 (2-11) mmol/L BUN 18 (6-24) mg/dL Creatinine 0.89 (0.67-1.17) mg/dL Est GFR ( Amer) 107.8 (>60) Est GFR (Non-Af Amer) 83.8 (>60) BUN/Creatinine Ratio 20.2 H (8-20) Glucose 93 (70-100) mg/dL Lactic Acid (0.5-2.0) mmol/L Calcium 9.1 (8.6-10.3) mg/dL Total Bilirubin 0.60 (0.2-1.0) mg/dL AST 17 (13-39) U/L ALT 9 (7-52) U/L Alkaline Phosphatase 71 (34-104) U/L Troponin I 0.00 (<0.04) ng/mL C-Reactive Protein 19.91 H (< 5.00) mg/L B-Natriuretic Peptide ( - 100) pg/mL Total Protein 8.3 (6.4-8.9) g/dL Albumin 3.6 (3.2-5.2) g/dL Globulin 4.7 H (2-4) g/dL Albumin/Globulin Ratio 0.8 L (1-3) Prealbumin 14 L (18-38) mg/dL Urine Color Urine Appearance Urine pH (5-9) Ur Specific [place] (1.010-1.030) Urine Protein (Negative) Urine Ketones (Negative) Urine Blood (Negative) Urine Nitrate (Negative) Urine Bilirubin (Negative) Urine Urobilinogen (Negative) Ur Leukocyte Esterase (Negative) Urine WBC (Auto) (Absent) Urine RBC (Auto) (Absent) Ur Squamous Epith Cells (Absent) Urine Bacteria (Absent) Hyaline Casts (Absent) Urine Glucose (Negative) 08/07/16 08/07/16 08/07/16 Range/Units 18:58 18:58 20:08 WBC (3.5-10.8) 10^3/ul RBC (4.0-5.4) 10^6/ul Hgb (14.0-18.0) g/dl Hct (42-52) % MCV (80-94) fL MCH (27-31) pg MCHC (31-36) g/dl RDW (10.5-15) % Plt Count (150-450) 10^3/ul MPV (7.4-10.4) um3 Neut % (Auto) (38-83) % Lymph % (Auto) (25-47) % [place] % (Auto) (1-9) % Eos % (Auto) (0-6) % Baso % (Auto) (0-2) % Absolute Neuts (auto) (1.5-7.7) 10^3/ul Absolute Lymphs (auto) (1.0-4.8) 10^3/ul Absolute Monos (auto) (0-0.8) 10^3/ul Absolute Eos (auto) (0-0.6) 10^3/ul Absolute Basos (auto) (0-0.2) 10^3/ul Absolute Nucleated RBC 10^3/ul Nucleated RBC % ESR (0-40) mm/Hr INR (Anticoag Therapy) (0.89-1.11) APTT (26.0-36.3) seconds Fibrinogen (110.8-404.3) mg/dL Sodium (133-145) mmol/L Potassium (3.5-5.0) mmol/L Chloride (101-111) mmol/L Carbon Dioxide (22-32) mmol/L Anion Gap (2-11) mmol/L BUN (6-24) mg/dL Creatinine (0.67-1.17) mg/dL Est GFR ( Amer) (>60) Est GFR (Non-Af Amer) (>60) BUN/Creatinine Ratio (8-20) Glucose (70-100) mg/dL Lactic Acid 1.2 (0.5-2.0) mmol/L Calcium (8.6-10.3) mg/dL Total Bilirubin (0.2-1.0) mg/dL AST (13-39) U/L ALT (7-52) U/L Alkaline Phosphatase (34-104) U/L Troponin I (<0.04) ng/mL C-Reactive Protein (< 5.00) mg/L B-Natriuretic Peptide 325 H ( - 100) pg/mL Total Protein (6.4-8.9) g/dL Albumin (3.2-5.2) g/dL Globulin (2-4) g/dL Albumin/Globulin Ratio (1-3) Prealbumin (18-38) mg/dL Urine Color Yellow Urine Appearance Clear Urine pH 7.0 (5-9) Ur Specific [place] 1.021 (1.010-1.030) Urine Protein 1+(30 mg/dl) H (Negative) Urine Ketones Negative (Negative) Urine Blood Negative (Negative) Urine Nitrate Negative (Negative) Urine Bilirubin Negative (Negative) Urine Urobilinogen Negative (Negative) Ur Leukocyte Esterase Negative (Negative) Urine WBC (Auto) Trace(0-5/hpf) (Absent) Urine RBC (Auto) Absent (Absent) Ur Squamous Epith Cells Present H (Absent) Urine Bacteria Absent (Absent) Hyaline Casts Present H (Absent) Urine Glucose Negative (Negative) Microbiology and Other Data: Microbiology 08/08/16 04:10 Nasal Screen MRSA (PCR)([facility]) - Final Nasal Mrsa Negative Assess/Plan/Problems-Billing Mr Jan Mckenzie is a 71 yo M who has a h/o chronic venous stasis changes/ulcerations who presented to the ER with c/o weakness. - Patient Problems (1) Weakness Current Visit: Yes Status: Acute Code(s): R53.1 - WEAKNESS SNOMED Code(s) : 50640094 Comment: Appreciate ID consult. Stop Abx as there is no clear signs of infection. Plan on LN biopsy today with Dr. Alba. Pt overall is feeling better. (2) Adenopathy Current Visit: Yes Status: Chronic Code(s): R59.1 - GENERALIZED ENLARGED LYMPH NODES SNOMED Code(s): 09250622 Comment: R groin LN biopsy today. Await pathology report. (3) DVT prophylaxis Current Visit: Yes Status: Acute Onset Date: 01/17/14 Code(s): HWP5036 - SNOMED Code(s): 840654642 Comment: SQ heparin (on hold for LN biopsy)-pt has IVC filter in place and this likely should be removed. (4) Patient is full code Current Visit: Yes Status: Acute Onset Date: 11/22/14 Code(s): Z78.9 - OTHER SPECIFIED HEALTH STATUS SNOMED Code(s): 209009529
--- NOTE | 2016-08-10 16:11 | RAD ---
CPT II Codes: 6100F INDICATION: Right inguinal lymphadenopathy COMPARISON: CT abdomen and pelvis August 08, 2016 The benefits and risks of procedure explained to the patient and the patient signed informed consent. Multiple images of the right groin were obtained. The lymph node in question was identified and a percutaneous tract was determined. A time out was performed before beginning the procedure. The patient was prepped and draped in the usual sterile fashion. The skin and tissue overlying the lymph node were anesthetized with 1% lidocaine. Percutaneously, a fine needle aspiration was obtained and provided to the attending cytopathologist. The cytopathologist indicated that preliminary evaluation demonstrated adequate sampling for diagnosis. According to the same technique as above additional fine-needle aspirations were acquired to assure adequate diagnostic volume. The post procedure ultrasound demonstrates no evidence for hematoma. The site was dressed with a sterile dressing. The patient tolerated procedure well without incident. IMPRESSION: Uncomplicated ultrasound-guided fine-needle aspiration of enlarged right inguinal lymph node.
--- NOTE | 2016-08-11 13:54 | PN ---
Subjective Date of Service: 08/11/16 Interval History: HOSPITALIST PROGRESS NOTE Patient seen and examined at bedside. He feels a little better today. Weakness still present, but less intense. Family History: Unchanged from Admission Social History: Unchanged from Admission Past Medical History: Unchanged from Admission Objective Active Medications: Acetaminophen (Tylenol Tab*) 650 mg PO Q4H PRN PRN Reason: FEVER/PAIN Al Hydrox/Mg Hydrox/Simethicone (Maalox Plus*) 30 ml PO Q6H PRN PRN Reason: INDIGESTION Docusate Sodium (Colace Cap*) 100 mg PO BID PRN PRN Reason: CONSTIPATION Magnesium Hydroxide (Milk Of Magnesia Liq*) 30 ml PO Q4H PRN PRN Reason: CONSTIPATION Morphine Sulfate (Morphine Inj (Syringe)*) 2 mg IV Q4H PRN PRN Reason: PAIN Ondansetron HCl (Zofran Inj*) 4 mg IV Q4H PRN PRN Reason: NAUSEA/VOMITING Oxycodone/Acetaminophen (Percocet 5/325 Tab*) 1 tab PO Q4H PRN PRN Reason: Pain Senna (Senokot Tab*) 1 tab PO BID PRN PRN Reason: CONSTIPATION Vital Signs 08/10/16 08/10/16 08/11/16 20:14 23:20 07:35 Temperature 98.4 F 98.7 F Pulse Rate 55 64 63 Respiratory 16 16 16 Rate Blood Pressure 132/73 118/69 121/69 (mmHg) O2 Sat by Pulse 100 100 100 Oximetry Oxygen Devices in Use Now: None Appearance: Pleasant elderly male sitting up in bed in [place]. Eyes: No Scleral Icterus Ears/Nose/Mouth/Throat: Mucous Membranes Moist Neck: Trachea Midline Respiratory: Symmetrical Chest Expansion and Respiratory Effort, Clear to Auscultation Cardiovascular: NL Sounds; No Murmurs; No JVD, RRR Abdominal: NL Sounds; No Tenderness; No Distention Lymphatic: - - Right inguinal adenopathy, mild tenderness on palpation Extremities: No Edema Neurological: Alert and Oriented x 3, NL Muscle Strength and Tone Lines/Tubes/Other Access: Clean, Dry and Intact Peripheral IV Nutrition: Taking PO's Result Diagrams: 08/10/16 05:03 08/10/16 05:03 Assess/Plan/Problems-Billing Assessment: Mr Jan Mckenzie is a 71 yo M who has a h/o chronic venous stasis changes/ulcerations who presented to the ER with c/o weakness. - Patient Problems (1) Weakness Comment: - Improving. - Unclear if associated with infection. - Suspect it can be secondary to malignancy, considering his adenopathy, fever, and weight loss. (2) Adenopathy Comment: - s/p R groin LN biopsy 08/10/16. - Awaiting pathology report. (3) DVT prophylaxis Comment: - SQ heparin. (4) Patient is full code Status and Disposition: Inpatient.
[2016-08-11] MEDS: Heparin VIAL(*) 5000 UNITS/ML VIAL (FIVE THOUSAND) SUBCUT SCH ×2 (16:59→22:03)
[2016-08-12] MEDS: Heparin VIAL(*) 5000 UNITS/ML VIAL (FIVE THOUSAND) SUBCUT SCH ×2 (05:23→14:44)
[2016-08-12 12:53] VITALS: BP 119/63
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
== END 2016-08-12 17:50 | disposition home or self-care (01) | DRG 580 ==
LOC: ED 18:10 → MED 22:47
PROVIDERS: ADMIT Pediatrics; ATTEND Internal Medicine
PROC: 07BH3ZX Excision of Right Inguinal Lymphatic, Percutaneous Approach, Diagnostic (ICD-10-PCS; principal; 2016-08-10)
DX: L03.115 Cellulitis of right lower limb (principal); R64 Cachexia; Z68.1 Body mass index [BMI] 19.9 or less, adult; R32 Unspecified urinary incontinence; G43.909 Migraine, unspecified, not intractable, without status migrainosus; I73.9 Peripheral vascular disease, unspecified; M19.90 Unspecified osteoarthritis, unspecified site; Z86.14 Personal history of Methicillin resistant Staphylococcus aureus infection; R40.2412 Glasgow coma scale score 13-15, at arrival to emergency department; I87.8 Other specified disorders of veins; R59.0 Localized enlarged lymph nodes; Z86.718 Personal history of other venous thrombosis and embolism; I87.2 Venous insufficiency (chronic) (peripheral); Z96.642 Presence of left artificial hip joint; B34.9 Viral infection, unspecified
CPT/HCPCS: 36415; 71010; 74177; 76942; 80048; 80053; 81003; 81015; 83605; 83880; 84134; 84484; 85025; 85379; 85384; 85610; 85652; 85730; 86140; 87040; 87641; 88172; 88173; 88177; 88184; 88185; 88188; 88305; 93005; 97597; A9270-GY; J0690; J0696; J1644; J2543; J3010; J3370; Q9967

== ENCOUNTER 2016-08-26 18:24 | Emergency (ER) | payer MEDICARE, MEDICAID ==
[2016-08-26] MEDS ORDERED: Morphine INJ* 2 MG/ML 1 ML SYRINGE IV ONE (21:13)
[2016-08-26] MEDS ORDERED: NS 0.9% 1000 ML* 1,000 ML IV ONE (21:13)
[2016-08-26 21:57] LABS: Hematocrit 38 % (42-52); Hemoglobin 12.4 g/dl (14.0-18.0); Mean Corpuscular HGB Conc 33 g/dl (31-36); Mean Corpuscular Hemoglobin 32 pg (27-31); Mean Corpuscular Volume 96 fL (80-94); Mean Platelet Volume 9 um3 (7.4-10.4); Red Blood Count 3.92 10^6/ul (4.0-5.4); Red Cell Distribution Width 13 % (10.5-15); White Blood Count 3.9 10^3/ul (3.5-10.8)
[2016-08-26 22:15] LABS: ALT 10 U/L (7-52); AST 19 U/L (13-39); Albumin 3.9 g/dL (3.2-5.2); Alkaline Phosphatase 77 U/L (34-104); Anion Gap 5 mmol/L (2-11); Blood Urea Nitrogen 22 mg/dL (6-24); C Reactive Protein < 1.00 mg/L (< 5.00); CO2 Carbon Dioxide 28 mmol/L (22-32); Calcium 9.6 mg/dL (8.6-10.3); Chloride 98 mmol/L (101-111); EGFR African American 139.9 (>60); EGFR Non-African American 108.8 (>60); Globulin 5.3 g/dL (2-4); Glucose 82 mg/dL (70-100); Lipase 15 U/L (11.0-82.0); Magnesium 1.9 mg/dL (1.9-2.7); Potassium 4.8 mmol/L (3.5-5.0); Sodium 131 mmol/L (133-145); Total Protein 9.2 g/dL (6.4-8.9)
[2016-08-26] MEDS ORDERED: Iohexol 300* (CONTRAST) 10 ML SDV IV ONE (23:20)
[2016-08-26 23:33] LABS: Urine Bilirubin Negative (Negative); Urine Glucose Negative (Negative); Urine Nitrite Negative (Negative)
[2016-08-27 02:17] VITALS: BP 105/68
--- NOTE | 2016-08-27 07:47 | RAD ---
INDICATION: Right inguinal pain. COMPARISON: Comparison is made with prior CTs of the abdomen and pelvis from February 15, 2008, October 24, 2014 and August 08, 2016. TECHNIQUE: A CT scan of the abdomen and pelvis was performed with intravenous and oral contrast following intravenous injection of 72 ml of Omnipaque 300 nonionic contrast. Contiguous axial sections were obtained from the lung bases through the symphysis pubis. Images were reconstructed in the coronal and sagittal planes. FINDINGS: There is mild dependent bilateral lower lobe subsegmental atelectasis. No pleural effusion is present. The liver and spleen are normal in size. There is a small hypervascular lesion present at the dome of the liver in the posterior segment of the right hepatic lobe measuring 0.7 cm in size which appears to be present on the study from 2007 and likely representing a hemangioma. There is a second 1.5 cm hypodense lesion also within the posterior segment of the right hepatic lobe which is unchanged from prior exams and also likely representing a hemangioma. There is a third lesion which is hypervascular present in the inferior portion of the right hepatic lobe not well seen on prior studies although given the other lesions also likely represents a hemangioma. No calcified gallstones are seen. The pancreas is not enlarged. No ductal distention is present. The kidneys and adrenal glands are normal in size. No hydronephrosis is seen. The left kidney is high in position located immediately under the left hemidiaphragm which is unchanged from the prior studies. No focal renal abnormality is seen. The prostate gland is enlarged measuring 5.2 cm in transverse dimension. The aorta is mildly ectatic. No aneurysm is present. There is a filter in the inferior vena cava which appears unchanged in position. The proximal tip is located just below the left renal vein. There are slightly enlarged right external iliac chain lymph nodes measuring up to 1 cm in transverse dimension which are unchanged from the prior exam. There are also enlarged inguinal lymph nodes present bilaterally measuring up to 2.1 x 1.9 cm which are unchanged. The stomach, small and large bowel appear nondistended. There is a large amount retained stool present throughout the colon. The appendix is not visualized. There is a right inguinal hernia containing a small amount of fluid. No free intraperitoneal air or fluid is seen. Postsurgical changes are noted in the proximal left femur. No significant focal osseous abnormalities are seen. IMPRESSION: 1. ENLARGED RIGHT EXTERNAL ILIAC CHAIN AND BILATERAL INGUINAL LYMPH NODES SIMILAR TO THE PRIOR STUDY. 2. 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 3. INFERIOR VENA CAVA FILTER IN PLACE. 4. LARGE AMOUNT OF RETAINED STOOL. 5. SMALL RIGHT INGUINAL HERNIA CONTAINING FLUID.
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
== END 2016-08-27 02:21 | disposition home or self-care (01) ==
LOC: ED 18:24
DX: R10.31 Right lower quadrant pain (principal); D50.9 Iron deficiency anemia, unspecified; K40.90 Unilateral inguinal hernia, without obstruction or gangrene, not specified as recurrent; K76.9 Liver disease, unspecified
CPT/HCPCS: 36415; 74177; 80053; 81003; 83605; 83690; 83735; 85025; 86140; 96374; 99283; Q9967

== ENCOUNTER → 2017-01-20 13:51 | Emergency (ER) | payer MEDICARE ==
[~2017-01-20 13:51] MED LIST: Ibuprofen TAB* 200 MG PO ONE; NS 0.9% 1000 ML* 1,000 ML IV ONE
[2017-01-20 19:00] LABS: Hematocrit 36 % (42-52); Hemoglobin 12.1 g/dl (14.0-18.0); Mean Corpuscular HGB Conc 34 g/dl (31-36); Mean Corpuscular Hemoglobin 31 pg (27-31); Mean Corpuscular Volume 93 fL (80-94); Mean Platelet Volume 10 um3 (7.4-10.4); Red Blood Count 3.88 10^6/ul (4.0-5.4); Red Cell Distribution Width 13 % (10.5-15); White Blood Count 4.1 10^3/ul (3.5-10.8)
[2017-01-20 19:15] LABS: ALT 14 U/L (7-52); AST 23 U/L (13-39); Albumin 3.7 g/dL (3.2-5.2); Alkaline Phosphatase 82 U/L (34-104); Anion Gap 4 mmol/L (2-11); BUN/Creatinine Ratio 41.2 (8-20); Blood Urea Nitrogen 28 mg/dL (6-24); C Reactive Protein < 1.00 mg/L (< 5.00); CO2 Carbon Dioxide 28 mmol/L (22-32); Chloride 103 mmol/L (101-111); EGFR Non-African American 114.3 (>60); Glucose 86 mg/dL (70-100); Potassium 4.2 mmol/L (3.5-5.0); Sodium 135 mmol/L (133-145); Total Protein 7.7 g/dL (6.4-8.9)
--- NOTE | 2017-01-20 19:36 | RAD ---
INDICATION: Nonhealing ulcer medial malleolus. Venous stasis COMPARISON: None TECHNIQUE: AP, lateral, and oblique views were obtained. FINDINGS: There is no acute bony change. There is osteopenia. There is mild medial soft tissue swelling. No foreign body is seen.. IMPRESSION: NO ACUTE BONY FINDINGS.
--- NOTE | 2017-01-20 19:37 | RAD ---
INDICATION: Nonhealing ulcer right foot. Venous stasis. COMPARISON: None TECHNIQUE: AP, lateral, and oblique views were obtained. FINDINGS: There are no acute bony findings. There is osteopenia. There is moderate first MTP joint osteoarthritic change. There are mild hammertoe deformities.. IMPRESSION: NO ACUTE BONY FINDINGS. MODERATE FIRST MTP JOINT OSTEOARTHRITIS.
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
[2017-01-21 07:25] VITALS: BP 125/73
--- NOTE | 2017-01-21 09:22 | PN ---
ED Flex Patient Progress Note Subjective: This is a 71 year-old M who is pending psychiatric evaluation by psychiatrist and is being observed secondary to ___depression and difficulty with self care, chronic venous stasis wounds . He was seen in ED yesterday for poorly healing wound on Rt LE. He has missed wound clinic appts and per notes he's not welcome back until he follows up with vascular specialist as their hand are tied with the care they can provide at this time - needs specialist referral. Per notes, pt is not comfortable seeing vascular specialist as he's not comfortable w/ a new provider. It was discussed his other alternative would be home visiting nurses to help him manage his wound - he does not want anyone in his home. He did speak with Dr. Blake last night about other arrangements and he has agreed to these today. Mark from wound clinic came over to change his dressing today. She also confirmed he's not kicked out of wound clinic but rather he needs additional consult through vascular and then they are happy to have him back in the practice. He was upset about his hiatus from wound care as he reports he was "kicked out" and needs to decide if he'll go back. However after discussing arrangements made by Dr. Blake which include consult with Dr. Pineda, a vascular specialist, this coming Wednesday to aid in transition back to wound care, he is in agreeance. Dr. Blake has also arranged transport for him through [employer] ([employer]). Pt offers no physical complaints at this time. 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 It was clarified that "fly away" meant relocate physically via plane, not by commiting suicide. He has not intentions of harming himself. Objective: Vitals: General NAD, Alert and oriented x3. Thin, quiet. Slow to respond but is thoughtful with responses. Heart: S1/S2, RRR Lungs: CTA, breathing easily AB: + BS, soft TABBY: transitions well from sitting to standing and vice versa NEURO: CN II-XII grossly intact Integ: B/L ankles/feet wrapped w/ dressings - pt declines PE and wound dressing change by myself - allowed wound clinic nurse to change dressings for him (he's familiar with her) Psych: guarded however thoughts are organized; appears anxious/reluctant - denies SI/HI Assessment: 1) Depression 2) Venous stasis w/ chronic wound RLE Plan: 1) Pending psychiatric discharge - denies SI/HI and agrees to f/u care through vascular surgery/wound care 2) as above - Will print details in d/c and pt agrees to connect with Dr. Blake - she will make arrangements for his ride and confirm appt with Dr. Crowder for Wednesday01/27/2017 Vital Signs Temp Pulse Resp BP Pulse Ox 98.9 F 64 16 125/73 100 01/21/17 07:23 01/21/17 07:23 01/21/17 07:23 01/21/17 07:23 01/21/17 02:00 Lab Results - Entire Visit 01/20/17 01/20/17 01/20/17 18:46 18:46 18:46 WBC 4.1 RBC 3.88 L Hgb 12.1 L Hct 36 L MCV 93 MCH 31 MCHC 34 RDW 13 Plt Count 157 MPV 10 Neut % (Auto) 61.7 Lymph % (Auto) 23.0 L Kleberg % (Auto) 12.1 H Eos % (Auto) 2.2 Baso % (Auto) 1.0 Absolute Neuts (auto) 2.5 Absolute Lymphs (auto) 0.9 L Absolute Monos (auto) 0.5 Absolute Eos (auto) 0.1 Absolute Basos (auto) 0 Absolute Nucleated RBC 0 Nucleated RBC % 0.1 Sodium 135 Potassium 4.2 Chloride 103 Carbon Dioxide 28 Anion Gap 4 BUN 28 H Creatinine 0.68 Est GFR ( Amer) 147.0 Est GFR (Non-Af Amer) 114.3 BUN/Creatinine Ratio 41.2 H Glucose 86 Lactic Acid 1.0 Calcium 9.0 Total Bilirubin 0.30 AST 23 ALT 14 Alkaline Phosphatase 82 C-Reactive Protein < 1.00 Total Protein 7.7 Albumin 3.7 Globulin 4.0 Albumin/Globulin Ratio 0.9 L
== END | disposition home or self-care (01) ==
LOC: ED 13:51
DX: I87.8 Other specified disorders of veins (principal)
CPT/HCPCS: 36415; 80053; 83605; 85025; 86140; 99285

== ENCOUNTER → 2017-02-10 17:57 | Emergency (ER) | payer MEDICARE ==
[2017-02-10 18:37] VITALS: BP 123/70
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
== END | disposition home or self-care (01) ==
LOC: UCEAST 17:57
DX: I83.019 Varicose veins of right lower extremity with ulcer of unspecified site (principal); F32.9 Major depressive disorder, single episode, unspecified
CPT/HCPCS: 99213; G0463

== ENCOUNTER 2017-02-12 22:00 | Observation (INO) | payer MEDICARE ==
[2017-02-12 23:37] LABS: Hematocrit 38 % (42-52); Hemoglobin 12.8 g/dl (14.0-18.0); Mean Corpuscular HGB Conc 34 g/dl (31-36); Mean Corpuscular Hemoglobin 31 pg (27-31); Mean Corpuscular Volume 93 fL (80-94); Mean Platelet Volume 9 um3 (7.4-10.4); Red Blood Count 4.09 10^6/ul (4.0-5.4); Red Cell Distribution Width 13 % (10.5-15)
[2017-02-12 23:39] LABS: Add Diff/Slide Review? Slide Review Added; Comments Flag Yes
[2017-02-12 23:55] LABS: Albumin 3.6 g/dL (3.2-5.2); BUN/Creatinine Ratio 23.8 (8-20); Calcium 9.3 mg/dL (8.6-10.3); EGFR African American 121.9 (>60); EGFR Non-African American 94.8 (>60); Globulin 4.3 g/dL (2-4); Magnesium 1.8 mg/dL (1.9-2.7); Potassium 4.6 mmol/L (3.5-5.0); Total Bilirubin 0.7 mg/dL (0.2-1.0); Total Protein 7.9 g/dL (6.4-8.9)
[2017-02-13] MEDS ORDERED: Melatonin (NF) 3 MG TAB PO PRN (02:15)
[2017-02-13] MEDS ORDERED: Acetaminophen TAB* 325 MG PO PRN (02:15)
[2017-02-13] MEDS ORDERED: NS 0.9% 1000 ML* 1,000 ML IV SCH (02:15)
[2017-02-13] MEDS ORDERED: Ondansetron INJ* 2 MG/ML VIAL IV PRN (02:15)
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
[2017-02-13] MEDS ORDERED: Magnesium Sulfate 2 GM IV* 2 GM/50 ML BAG IVPB ONE (04:08)
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
[2017-02-13] MEDS: Omeprazole CAP* 20 MG PO SCH (05:06)
[2017-02-13 05:50] LABS: Hematocrit 37 % (42-52); Hemoglobin 12.6 g/dl (14.0-18.0); Mean Corpuscular HGB Conc 35 g/dl (31-36); Mean Corpuscular Hemoglobin 32 pg (27-31); Mean Corpuscular Volume 92 fL (80-94); Mean Platelet Volume 9 um3 (7.4-10.4); Red Blood Count 3.98 10^6/ul (4.0-5.4); Red Cell Distribution Width 13 % (10.5-15)
[2017-02-13 05:52] LABS: Comments Flag Yes
[2017-02-13 06:05] LABS: BUN/Creatinine Ratio 28.2 (8-20); Calcium 8.9 mg/dL (8.6-10.3); EGFR African American 139.9 (>60); EGFR Non-African American 108.8 (>60); Potassium 3.9 mmol/L (3.5-5.0)
--- NOTE | 2017-02-13 08:51 | RAD ---
Indication: Dizziness. Single frontal view of the chest performed at 2313 hours was reviewed. Comparison is made with previous exam dated August 07, 2016. No mediastinal shift is noted. Heart is of normal size and configuration. Lung alexis appear clear. Hyperinflated lung alexis are noted. IMPRESSION: NO ACTIVE CARDIOPULMONARY DISEASE IS NOTED.
[2017-02-13] MEDS: Docusate CAP* 100 MG PO SCH ×2 (09:18→21:51)
[2017-02-13] MEDS ORDERED: Ibuprofen TAB* 400 MG PO PRN (11:12)
--- NOTE | 2017-02-13 12:58 | RAD ---
Indication: Dizziness, near syncope. CT brain without IV contrast. Comparison is made with previous exam dated June 26, 2010. Ventricular structures are midline. No midline shift is noted. The extra-axial spaces are unremarkable. There is focal right frontal encephalomalacia which is unchanged from previous exam. There is no evidence of intracranial mass or hemorrhage noted. Bony calvaria demonstrates no fracture. Mastoid air cells and paranasal sinuses are otherwise unremarkable. 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 NO INTRACRANIAL MASS OR HEMORRHAGE IS NOTED.
[2017-02-14 02:56] LABS: Urine Bilirubin Negative (Negative); Urine Glucose Negative (Negative); Urine Nitrite Negative (Negative)
[2017-02-14] MEDS: Omeprazole CAP* 20 MG PO SCH (05:56)
[2017-02-14] MEDS: Docusate CAP* 100 MG PO SCH (08:26)
[2017-02-14 10:01] VITALS: BP 116/74
--- NOTE | 2017-02-14 13:17 | PN ---
Progress Note - Progress Note Date of Service: 02/14/17 Note: Discharge Progress Note Primary Diagnosis: near-syncope Secondary Diagnoses: depression chronic venous stasis RT frontal encephalomalacia pancytopenia hyponatremia, mild Procedures: none Consultations: none Pertinent Test Results: CT brain: RT frontal encephalomalacia, ?old trauma or stroke CXR: negative EKG: LVH, NSR Laboratory Tests 02/12/17 02/12/17 02/12/17 23:16 23:16 23:16 WBC 3.0 L Hgb Hct Plt Count Sodium Magnesium 1.8 L Troponin I 0.00 B-Natriuretic Peptide 68 Influenza A (Rapid) Influenza B (Rapid) 02/13/17 02/13/17 02/13/17 03:28 05:42 05:42 WBC 3.0 L Hgb 12.6 L Hct 37 L Plt Count 146 L Sodium 131 L Magnesium Troponin I B-Natriuretic Peptide Influenza A (Rapid) Negative Influenza B (Rapid) Negative Tests pending upon discharge: echocardiogram Physical Exam: Selected Entries 02/14/17 08:47 Temperature 37.1 C Pulse Rate 64 Respiratory 16 Rate Blood Pressure 116/74 (mmHg) O2 Sat by Pulse 99 Oximetry Alert Vague tangential historian Lungs: increased expiratory time Heart; RRR, no murmur LE edema bilat, wrapped in bandages
--- NOTE | 2017-02-15 11:09 | DS ---
CC: Dr. Hunt DISCHARGE SUMMARY: DATE OF ADMISSION: 02/13/17 DATE OF DISCHARGE: 02/14/17 PRIMARY CARE DOCTOR: Dr. Hunt. PRIMARY DIAGNOSIS: Near syncope. SECONDARY DIAGNOSES: 1. Depression. 2. Chronic venous stasis with ulceration. 3. Right frontal lobe encephalomalacia on CT scan. 4. Pancytopenia. 5. Mild hyponatremia. 6. Gastroesophageal reflux disease. MEDICATIONS ON DISCHARGE: 1. Colace 200 mg p.o. b.i.d. 2. Ibuprofen 400 mg p.o. q. 6 hours p.r.n. pain. 3. Melatonin 3 mg p.o. q.h.s. p.r.n. insomnia. 4. Omeprazole 20 mg p.o. daily. HOSPITAL COURSE: Please see the history and physical for full details of the admission. In brief, t he patient had rapid onset of weakness and near syncope without an injury. The patient was admitted for observation to [facility] for neurologic and cardiac causes of syncope. He was monitored in the teleme try for 24 hours and had no significant arrhythmias. His EKG showed normal sinus rhythm, left ventri cular hypertrophy, left atrial enlargement. An echocardiogram was ordered, but the patient deferred this to outpatient workup. Head CT showed old right frontal lobe encephalomalacia potentially from p revious stroke or head trauma. Laboratory data notable for lactic acid 1.1, troponin 0, sodium 131 on discharge. White count 3.0, hemoglobin 12.6, hematocrit 37%, platelets 146. Overall, the patient presented with sudden onset of weakness and near syncope. He during the [facility] stay described social problems with loss of income and loss of Medicaid Health Insurance. He expre ssed being under a lot of stress and attributes his near syncope to this. No specific medical cause of the dizziness was found. The patient accepted a referral for visiting nurse and he also has social work follow him through the hospital. There is discussion about him moving to assisted living type place whereas at this point he lives in a senior apartment. DISPOSITION: Home. ACTIVITY: As tolerated. DIET: Regular diet. The patient ate well while he was here in the hospital despite reported history of weight loss. [id number]/[facility] #: [id number]
== END 2017-02-14 16:13 | disposition home or self-care (01) ==
LOC: ED 22:00 → MEDTELE 02-13 02:08
PROVIDERS: ADMIT Hospitalist; ATTEND Internal Medicine
DX: R55 Syncope and collapse (principal); F32.9 Major depressive disorder, single episode, unspecified; I87.8 Other specified disorders of veins; G93.89 Other specified disorders of brain; D61.818 Other pancytopenia; E87.1 Hypo-osmolality and hyponatremia; K21.9 Gastro-esophageal reflux disease without esophagitis; Z79.899 Other long term (current) drug therapy; R06.02 Shortness of breath; I83.013 Varicose veins of right lower extremity with ulcer of ankle; L97.319 Non-pressure chronic ulcer of right ankle with unspecified severity; R53.1 Weakness; D50.9 Iron deficiency anemia, unspecified; I20.9 Angina pectoris, unspecified; I51.7 Cardiomegaly
CPT/HCPCS: 36415; 70450; 71010; 80048; 80053; 81003; 82550; 83605; 83735; 83880; 84484; 85025; 85610; 85730; 87502; 87641; 93005; 96360; 96361; 99284; A9270-GY; G0378; G8978-GP-CI; G8980-GP-CH; J3475

== ENCOUNTER 2017-02-24 13:43 | Emergency (ER) | payer MEDICARE ==
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
[2017-02-24 16:58] VITALS: BP 136/62
[2017-02-25] MEDS ORDERED: Zinc Oxide 40% (TOPICAL)* TUBE TOPICAL SCH (09:00)
== END 2017-02-24 16:36 | disposition home or self-care (01) ==
LOC: UCEAST 13:43
DX: Z48.00 Encounter for change or removal of nonsurgical wound dressing (principal)
CPT/HCPCS: 99213; G0463

== ENCOUNTER 2017-07-22 18:23 | Emergency (ER) | payer MEDICARE, OTHER ==
[2017-07-22 19:05] VITALS: BP 115/64
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
--- NOTE | 2017-07-24 16:23 | UC ---
- Progress Note Progress Note: I am told that the UA with micro reflex was not sent to the lab. Based on the information provided in the note and inability to contact Dr. Vela - I do not believe this needs to be recollected. Pt has PCP follow up. Discharge - Sign-Out/Discharge Documenting (check all that apply): Post-Discharge Follow Up - Discharge Plan Condition: Good Disposition: HOME Patient Education Materials: Malnutrition (DC) Referrals: Livia Hunt MD [Primary Care Provider] - - Billing Disposition and Condition Condition: GOOD Disposition: HOME
== END 2017-07-22 20:40 | disposition home or self-care (01) ==
LOC: UCEAST 18:23
DX: R42 Dizziness and giddiness (principal); E88.89 Other specified metabolic disorders; F32.9 Major depressive disorder, single episode, unspecified; K21.9 Gastro-esophageal reflux disease without esophagitis; I83.009 Varicose veins of unspecified lower extremity with ulcer of unspecified site
CPT/HCPCS: 81003; 93005; 99211; G0463

== ENCOUNTER 2018-01-19 16:58 | Emergency (ER) | payer MEDICARE, OTHER ==
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
[2018-01-19 20:33] VITALS: BP 141/80
== END 2018-01-19 21:00 | disposition home or self-care (01) ==
LOC: ED 16:58
DX: K40.90 Unilateral inguinal hernia, without obstruction or gangrene, not specified as recurrent (principal); R51 Headache; R10.9 Unspecified abdominal pain
CPT/HCPCS: 99283

== ENCOUNTER 2018-11-02 16:15 | Emergency (ER) | payer MEDICARE, OTHER ==
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
[2018-11-02 18:29] LABS: ABS Lymphocytes 0.8 10^3/ul (1.0-4.8); ABS Monocytes 0.4 10^3/ul (0-0.8); ABS Neutrophils 2.5 10^3/ul (1.5-7.7); Eosinophil % 1.1 %; Hematocrit 35 % (42-52); Hemoglobin 12.1 g/dL (14.0-18.0); Lymphocyte % 21.3 %; Mean Corpuscular HGB Conc 34 g/dL (31-36); Mean Corpuscular Hemoglobin 32 pg (27-31); Mean Corpuscular Volume 95 fL (80-94); Mean Platelet Volume 8.9 fL (7.4-10.4); Platelet Count 145 10^3/uL (150-450); Red Blood Count 3.72 10^6 /uL (4.18-5.48); Red Cell Distribution Width 13 % (10-15); White Blood Count 3.8 10^3/uL (3.5-10.8)
[2018-11-02 18:46] LABS: ALT 9 U/L (7-52); AST 18 U/L (13-39); Albumin 3.8 g/dL (3.2-5.2); Alkaline Phosphatase 67 U/L (34-104); Anion Gap 3 mmol/L (2-11); BUN/Creatinine Ratio 38.2 (8-20); Blood Urea Nitrogen 26 mg/dL (6-24); C Reactive Protein < 1.00 mg/L (<8.01); CO2 Carbon Dioxide 28 mmol/L (22-32); Calcium 8.9 mg/dL (8.6-10.3); Chloride 104 mmol/L (101-111); EGFR African American 137.6 (>60); EGFR Non-African American 113.7 (>60); Globulin 3.8 g/dL (2-4); Glucose 88 mg/dL (70-100); Potassium 4.8 mmol/L (3.5-5.0); Sodium 135 mmol/L (135-145); Total Protein 7.6 g/dL (6.4-8.9)
[2018-11-02 20:49] VITALS: BP 134/70
== END 2018-11-02 20:48 | disposition home or self-care (01) ==
LOC: ED 16:15
DX: I87.311 Chronic venous hypertension (idiopathic) with ulcer of right lower extremity (principal); D64.9 Anemia, unspecified; F41.9 Anxiety disorder, unspecified; L97.811 Non-pressure chronic ulcer of other part of right lower leg limited to breakdown of skin; L97.511 Non-pressure chronic ulcer of other part of right foot limited to breakdown of skin; R60.0 Localized edema
CPT/HCPCS: 36415; 80053; 85025; 86140; 99213; 99282; G0463

== ENCOUNTER 2019-03-22 20:18 | Emergency (ER) | payer MEDICARE, OTHER ==
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
[2019-03-22 23:29] LABS: ABS Eosinophils 0.1 10^3/ul (0-0.6); ABS Lymphocytes 0.8 10^3/ul (1.0-4.8); ABS Monocytes 0.4 10^3/ul (0-0.8); ABS Neutrophils 1.9 10^3/ul (1.5-7.7); Eosinophil % 3.1 %; Hematocrit 35 % (42-52); Hemoglobin 11.7 g/dL (14.0-18.0); Lymphocyte % 25.4 %; Mean Corpuscular HGB Conc 34 g/dL (31-36); Mean Corpuscular Hemoglobin 32 pg (27-31); Mean Corpuscular Volume 95 fL (80-94); Mean Platelet Volume 9.5 fL (7.4-10.4); Nucleated Red Blood Cells % 0.1; Platelet Count 129 10^3/uL (150-450); Red Blood Count 3.69 10^6 /uL (4.18-5.48); Red Cell Distribution Width 13 % (10-15); White Blood Count 3.2 10^3/uL (3.5-10.8)
[2019-03-22 23:42] LABS: ALT 10 U/L (7-52); AST 17 U/L (13-39); Albumin 3.7 g/dL (3.2-5.2); Alkaline Phosphatase 68 U/L (34-104); Anion Gap 5 mmol/L (2-11); BUN/Creatinine Ratio 35.4 (8-20); Blood Urea Nitrogen 23 mg/dL (6-24); C Reactive Protein < 1.00 mg/L (<8.01); CO2 Carbon Dioxide 28 mmol/L (22-32); Calcium 8.6 mg/dL (8.6-10.3); Chloride 106 mmol/L (101-111); EGFR African American 144.5 (>60); EGFR Non-African American 119.4 (>60); Globulin 3.8 g/dL (2-4); Glucose 82 mg/dL (70-100); Potassium 4.2 mmol/L (3.5-5.0); Sodium 139 mmol/L (135-145); Total Protein 7.5 g/dL (6.4-8.9)
[2019-03-23] MEDS ORDERED: Iohexol 300* (CONTRAST) 10 ML SDV IV ONE
[2019-03-23 01:27] LABS: Urine Appearance Clear; Urine Bilirubin Negative (Negative); Urine Blood Negative (Negative); Urine Color Yellow; Urine Glucose Negative (Negative); Urine Ketones Negative (Negative); Urine Nitrite Negative (Negative); Urine Protein Negative (Negative); Urine Specific Gravity 1.024 (1.010-1.030); Urine Urobilinogen Negative (Negative)
[2019-03-23 02:47] VITALS: BP 127/80
== END 2019-03-23 01:40 | disposition home or self-care (01) ==
LOC: ED 20:18
DX: K40.90 Unilateral inguinal hernia, without obstruction or gangrene, not specified as recurrent (principal); D50.9 Iron deficiency anemia, unspecified; I73.9 Peripheral vascular disease, unspecified; F41.9 Anxiety disorder, unspecified
CPT/HCPCS: 36415; 74176; 80053; 81003; 83605; 83690; 85025; 86140; 99284

== ENCOUNTER 2019-09-06 22:48 | Observation (INO) ==
[2019-09-07] MEDS ORDERED: cefTRIAXone 1 gm/50 mL NS BAG 1 GM/50 ML BAG IVPB ONE (00:14)
[2019-09-07 00:43] LABS: ABS Eosinophils 0.1 10^3/ul (0-0.6); ABS Lymphocytes 0.8 10^3/ul (1.0-4.8); ABS Monocytes 0.5 10^3/ul (0-0.8); ABS Neutrophils 2.3 10^3/ul (1.5-7.7); Eosinophil % 1.7 %; Hematocrit 32 % (42-52); Hemoglobin 11.1 g/dL (14.0-18.0); Lymphocyte % 20.8 %; Mean Corpuscular HGB Conc 35 g/dL (31-36); Mean Corpuscular Hemoglobin 33 pg (27-31); Mean Corpuscular Volume 96 fL (80-94); Mean Platelet Volume 8.7 fL (7.4-10.4); Platelet Count 178 10^3/uL (150-450); Red Blood Count 3.36 10^6 /uL (4.18-5.48); Red Cell Distribution Width 12 % (10-15); White Blood Count 3.7 10^3/uL (3.5-10.8)
[2019-09-07 01:01] LABS: Albumin 3.7 g/dL (3.2-5.2); Albumin/Globulin Ratio 0.9 (1-3); BUN/Creatinine Ratio 30.1 (8-20); C Reactive Protein 8.6 mg/L (<8.01); Calcium 8.6 mg/dL (8.6-10.3); EGFR African American 126.4 (>60); EGFR Non-African American 104.5 (>60); Globulin 4.2 g/dL (2-4); Potassium 4.3 mmol/L (3.5-5.0); Total Bilirubin 0.6 mg/dL (0.2-1.0); Total Protein 7.9 g/dL (6.4-8.9)
[2019-09-07] MEDS ORDERED: NS 0.9% 1000 ml BAG 1,000 ML IV ONE (01:02)
[2019-09-07] MEDS ORDERED: Vancomycin 1,000 MG in NS 0.9% 250 ml 250 ML IVPB ONE (02:12)
[2019-09-07] MEDS ORDERED: Ondansetron 4 mg VIAL 2 MG/ML 2 ml VIAL IV PRN (02:12)
[2019-09-07] MEDS ORDERED: NS 0.9% 1000 ml BAG 1,000 ML IV SCH (02:15)
[2019-09-07] MEDS ORDERED: Vancomycin per Pharmacy 1 EA NOTE FOLLOW UP SCH (03:00)
[2019-09-07] MEDS ORDERED: Vancomycin 750 MG in NS 0.9% 250 ml 250 ML IVPB SCH ×2 (04:00→16:00)
[2019-09-07 06:54] LABS: INR 1.06 (0.82-1.09)
[2019-09-07 07:38] LABS: ABS Eosinophils 0.1 10^3/ul (0-0.6); ABS Lymphocytes 0.8 10^3/ul (1.0-4.8); ABS Monocytes 0.5 10^3/ul (0-0.8); ABS Neutrophils 1.5 10^3/ul (1.5-7.7); Eosinophil % 4.2 %; Hematocrit 29 % (42-52); Hemoglobin 10.1 g/dL (14.0-18.0); Lymphocyte % 26.2 %; Mean Corpuscular HGB Conc 35 g/dL (31-36); Mean Corpuscular Hemoglobin 33 pg (27-31); Mean Corpuscular Volume 95 fL (80-94); Mean Platelet Volume 8.4 fL (7.4-10.4); Platelet Count 152 10^3/uL (150-450); Red Blood Count 3.06 10^6 /uL (4.18-5.48); Red Cell Distribution Width 12 % (10-15); White Blood Count 2.9 10^3/uL (3.5-10.8)
[2019-09-07 07:50] LABS: Anion Gap 5 mmol/L (2-11); BUN/Creatinine Ratio 36.2 (8-20); Blood Urea Nitrogen 21 mg/dL (6-24); CO2 Carbon Dioxide 24 mmol/L (22-32); Calcium 7.7 mg/dL (8.6-10.3); Chloride 110 mmol/L (101-111); EGFR African American 164.8 (>60); EGFR Non-African American 136.2 (>60); Glucose 83 mg/dL (70-100); Potassium 3.9 mmol/L (3.5-5.0); Sodium 139 mmol/L (135-145)
[2019-09-07] MEDS: Heparin 5000 UNITS/ML 1 mL VIAL SUBCUT SCH ×3 (08:34→23:25)
[2019-09-07 16:55] LABS: % Iron Saturation 10 % (15-55); Iron 26 ug/dL (50-212); Total Iron Binding Capacity 251 mcg/dL (250-450); Transferrin 179 mg/dL (203-362); Unsaturated Iron Binding < 236 ug/dL
[2019-09-07 17:17] LABS: Ferritin 52.6 ng/mL (24-336)
[2019-09-07 17:20] LABS: Folate 19.77 ng/mL (>3.99)
[2019-09-07 17:22] LABS: Vitamin B12 119 pg/mL (180-914)
[2019-09-07] MEDS: ceFAZolin 1 GM ADVAN 1 GM in NS 0.9% 50 ML 50 ML IVPB SCH ×2 (18:15→23:00)
[2019-09-08] MEDS: Heparin 5000 UNITS/ML 1 mL VIAL SUBCUT SCH ×2 (04:24→12:16)
[2019-09-08] MEDS: ceFAZolin 1 GM ADVAN 1 GM in NS 0.9% 50 ML 50 ML IVPB SCH ×2 (04:42→10:59)
[2019-09-08] MEDS ORDERED: Vancomycin Trough Check NOTE FOLLOW UP ONE (15:30)
[2019-09-08 21:33] VITALS: BP 138/72
== END 2019-09-08 22:00 | disposition home or self-care (01) ==
LOC: MED 22:48 → ED 22:48 → MED 09-07 03:31
PROVIDERS: ADMIT Nurse Practitioner Family; ATTEND Hospitalist

== ENCOUNTER 2021-01-05 21:32 | Observation (INO) ==
[2021-01-05 23:56] LABS: ABS Lymphocytes 1.1 10^3/ul (1.0-4.8); ABS Monocytes 0.4 10^3/ul (0-0.8); ABS Neutrophils 2.1 10^3/ul (1.5-7.7); Eosinophil % 1.2 %; Hematocrit 40 % (42-52); Hemoglobin 13.4 g/dL (14.0-18.0); Lymphocyte % 29.2 %; Mean Corpuscular HGB Conc 34 g/dL (31-36); Mean Corpuscular Hemoglobin 32 pg (27-31); Mean Corpuscular Volume 94 fL (80-94); Mean Platelet Volume 9.2 fL (7.4-10.4); Nucleated Red Blood Cells % 0.1; Platelet Count 139 10^3/uL (150-450); Red Blood Count 4.24 10^6 /uL (4.18-5.48); Red Cell Distribution Width 14 % (10-15); White Blood Count 3.7 10^3/uL (3.5-10.8)
[2021-01-06 00:13] LABS: ALT 8 U/L (7-52); AST 15 U/L (13-39); Albumin 3.9 g/dL (3.2-5.2); Alkaline Phosphatase 69 U/L (35-149); Blood Urea Nitrogen 36 mg/dL (6-24); CO2 Carbon Dioxide 27 mmol/L (22-32); Calcium 9.3 mg/dL (8.6-10.3); Chloride 104 mmol/L (101-111); Globulin 4.1 g/dL (2-4); Glucose 85 mg/dL (70-100); Sodium 136 mmol/L (135-145)
[2021-01-06 00:14] LABS: Anion Gap 5 mmol/L (2-11); Potassium 5.5 mmol/L (3.5-5.0)
[2021-01-06 00:31] LABS: Troponin I 0.06 ng/mL (<0.03)
[2021-01-06 00:40] LABS: TSH Ultra Thyroid Stim Horm 3.82 mcIU/mL (0.34-5.60)
[2021-01-06] MEDS ORDERED: Lactated Ringers 1000 ml BAG 1,000 ML IV ONE (01:24)
[2021-01-06] MEDS ORDERED: Diltiazem IV push/loading dose 5 MG/ML 5 ML vial (25 mg) IV SLOW PU ONE (01:54)
[2021-01-06] MEDS ORDERED: Adenosine 3 MG/ML 2 ml VIAL (6 mg) IV PUSH ONE (01:54)
[2021-01-06] MEDS ORDERED: Diltiazem IV BAG D5W Premix 125 MG/125 ML BAG IV SCH (03:00)
[2021-01-06] MEDS ORDERED: Ondansetron 4 mg VIAL 2 MG/ML 2 ml VIAL IV PRN (03:32)
[2021-01-06] MEDS ORDERED: Al Hydrox/Mg Hydrox/Simet LIQ 30 ML UDC PO PRN (03:32)
[2021-01-06 04:33] LABS: Rapid COVID-19 Molecular Undetected (Undetected)
[2021-01-06 05:19] LABS: Troponin I 0.06 ng/mL (<0.03)
[2021-01-06 06:13] LABS: Anion Gap 8 mmol/L (2-11); Blood Urea Nitrogen 32 mg/dL (6-24); CO2 Carbon Dioxide 23 mmol/L (22-32); Calcium 8.6 mg/dL (8.6-10.3); Chloride 106 mmol/L (101-111); Glucose 99 mg/dL (70-100); Potassium 4.2 mmol/L (3.5-5.0); Sodium 137 mmol/L (135-145)
[2021-01-07 06:45] LABS: Hematocrit 33 % (42-52); Hemoglobin 11.2 g/dL (14.0-18.0); Mean Corpuscular HGB Conc 34 g/dL (31-36); Mean Corpuscular Hemoglobin 32 pg (27-31); Mean Corpuscular Volume 94 fL (80-94); Platelet Count 117 10^3/uL (150-450); Red Blood Count 3.53 10^6 /uL (4.18-5.48); Red Cell Distribution Width 14 % (10-15)
[2021-01-07 06:46] LABS: ABS Eosinophils 0.1 10^3/ul (0-0.6); ABS Monocytes 0.4 10^3/ul (0-0.8); ABS Neutrophils 1.4 10^3/ul (1.5-7.7); Eosinophil % 4.6 %; Lymphocyte % 34.2 %; Mean Platelet Volume 9.5 fL (7.4-10.4); Nucleated Red Blood Cells % 0.2
[2021-01-07 07:07] LABS: Calcium 8.4 mg/dL (8.6-10.3)
[2021-01-07 07:16] LABS: Potassium 5.3 mmol/L (3.5-5.0)
[2021-01-07 08:51] LABS: Magnesium 1.7 mg/dL (1.9-2.7)
[2021-01-07] MEDS ORDERED: Magnesium Sulfate 2 gm BAG 2 GM/50 ML BAG IVPB ONE (10:08)
[2021-01-07] MEDS ORDERED: SODIUM ZIRCONIUM CYCLOSILICATE 10 GM PACKET PO ONE (10:08)
[2021-01-07] MEDS ORDERED: Aminophylline 25 MG/ML VIAL ONE (13:15)
[2021-01-07] MEDS ORDERED: Regadenoson 0.4 MG/5 ML SYRINGE ONE (13:15)
[2021-01-08 05:54] LABS: ABS Eosinophils 0.2 10^3/ul (0-0.6); ABS Monocytes 0.4 10^3/ul (0-0.8); ABS Neutrophils 1.5 10^3/ul (1.5-7.7); Eosinophil % 5.2 %; Hematocrit 34 % (42-52); Hemoglobin 11.6 g/dL (14.0-18.0); Mean Corpuscular HGB Conc 34 g/dL (31-36); Mean Corpuscular Hemoglobin 32 pg (27-31); Mean Corpuscular Volume 94 fL (80-94); Mean Platelet Volume 9.7 fL (7.4-10.4); Nucleated Red Blood Cells % 0.1; Platelet Count 129 10^3/uL (150-450); Red Blood Count 3.65 10^6 /uL (4.18-5.48); Red Cell Distribution Width 13 % (10-15); White Blood Count 3.1 10^3/uL (3.5-10.8)
[2021-01-08 06:08] LABS: Calcium 8.6 mg/dL (8.6-10.3)
[2021-01-08 06:30] LABS: Potassium 5.1 mmol/L (3.5-5.0)
[2021-01-08] MEDS ORDERED: Heparin 2 UNITS/ML 1000 mls 2,000 ML IV ONE (11:13)
[2021-01-08] MEDS ORDERED: fentaNYL 100 mcg/2 ml 50 MCG/ML VIAL ONE (11:13)
[2021-01-08] MEDS ORDERED: nitroGLYCERIN DRIP 25,000 MCG/250 ML BTL ONE (11:13)
[2021-01-08] MEDS ORDERED: Heparin 1,000 UNIT/ML 10 ml (10,000 UNITS) CATHLAB/DIALYSIS ONE (11:13)
[2021-01-08] MEDS ORDERED: Midazolam 5 mg/5 ml VIAL 1 mg/ml 5 ml VIAL (5 mg) ONE (11:13)
[2021-01-08] MEDS ORDERED: Iohexol 350 (CONTRAST) 200 ML MDV IV ONE ×2 (11:14→11:44)
[2021-01-08] MEDS ORDERED: niCARdipine 0.1MG/ML IVPREMIX 20 MG/200 ML BAG IV ONE (11:14)
[2021-01-08] MEDS ORDERED: Lidocaine 1% VIAL 10 MG/ML VIAL ONE (11:14)
[2021-01-08] MEDS ORDERED: SODIUM ZIRCONIUM CYCLOSILICATE 5 GM PACKET PO ONE (17:38)
[2021-01-09 05:57] LABS: ABS Eosinophils 0.1 10^3/ul (0-0.6); ABS Lymphocytes 0.8 10^3/ul (1.0-4.8); ABS Monocytes 0.4 10^3/ul (0-0.8); ABS Neutrophils 1.4 10^3/ul (1.5-7.7); Eosinophil % 4.7 %; Hematocrit 35 % (42-52); Hemoglobin 11.8 g/dL (14.0-18.0); Lymphocyte % 30.2 %; Mean Corpuscular HGB Conc 34 g/dL (31-36); Mean Corpuscular Hemoglobin 32 pg (27-31); Mean Corpuscular Volume 94 fL (80-94); Mean Platelet Volume 9.9 fL (7.4-10.4); Nucleated Red Blood Cells % 0.1; Platelet Count 121 10^3/uL (150-450); Red Cell Distribution Width 14 % (10-15); White Blood Count 2.8 10^3/uL (3.5-10.8)
[2021-01-09 08:37] LABS: Calcium 8.3 mg/dL (8.6-10.3); Magnesium 1.8 mg/dL (1.9-2.7)
[2021-01-09 08:41] LABS: Potassium 4.8 mmol/L (3.5-5.0)
[2021-01-09 18:13] VITALS: BP 106/66
== END 2021-01-09 21:20 | disposition home or self-care (01) ==
LOC: EDHOLD 21:32 → ED 21:32 → SUATTDRO 01-06 03:32 → MEDTELE 01-06 12:30
PROVIDERS: ADMIT Hospitalist; ATTEND Internal Medicine

== ENCOUNTER 2022-03-02 17:52 | Inpatient (IN) ==
[2022-03-02 18:59] LABS: ABS Lymphocytes 0.8 10^3/ul (1.0-4.8); ABS Monocytes 0.5 10^3/ul (0-0.8); ABS Neutrophils 4.8 10^3/ul (1.5-7.7); Eosinophil % 0.3 %; Hematocrit 41 % (42-52); Hemoglobin 13.6 g/dL (14.0-18.0); Lymphocyte % 12.5 %; Mean Corpuscular HGB Conc 34 g/dL (31-36); Mean Corpuscular Hemoglobin 32 pg (27-31); Mean Corpuscular Volume 94 fL (80-94); Platelet Count 160 10^3/uL (150-450); Red Blood Count 4.32 10^6 /uL (4.18-5.48); Red Cell Distribution Width 14 % (10-15); White Blood Count 6.1 10^3/uL (3.5-10.8)
[2022-03-02 19:30] LABS: Albumin/Globulin Ratio 1.1 (1-3); Calcium 8.9 mg/dL (8.6-10.3); Creatinine, Serum 0.88 mg/dL (0.67-1.17); Globulin 3.8 g/dL (2-4); Magnesium 1.8 mg/dL (1.9-2.7); Potassium 4.2 mmol/L (3.5-5.0); Total Protein 7.8 g/dL (6.4-8.9)
[2022-03-02 19:43] LABS: TSH Ultra Thyroid Stim Horm 1.83 mcIU/mL (0.34-5.60)
[2022-03-02 20:22] LABS: High Sensitivity Troponin 1 Hr 3 pg/mL (<20)
[2022-03-02] MEDS ORDERED: Iohexol 350 (CONTRAST) 500 ML MDV IV ONE (21:36)
[2022-03-02] MEDS ORDERED: Magnesium Sulfate 2 gm BAG 2 GM/50 ML BAG IVPB ONE (22:13)
[2022-03-02] MEDS ORDERED: Lactated Ringers 1000 ml BAG 1,000 ML IV ONE (22:14)
[2022-03-03] MEDS ORDERED: Piperacillin/Tazobac ADVAN 3.375 GM in NS 0.9% 100 ml BAG 100 ML IV ONE (00:05)
[2022-03-03] MEDS ORDERED: Piperacillin/Tazobac ADVAN 3.375 GM in NS 0.9% 100 ml BAG 100 ML IV SCH ×2 (06:00→08:00)
[2022-03-03] MEDS ORDERED: Lactated Ringers 1000 ml BAG 1,000 ML IV SCH ×2 (06:00)
[2022-03-03] MEDS ORDERED: Acetaminophen IV 1 GM/100ML 1,000 MG/100 ML BAG IV PRN (06:27)
[2022-03-03 07:35] LABS: ABS Monocytes 0.6 10^3/ul (0-0.8); ABS Neutrophils 4.6 10^3/ul (1.5-7.7); Eosinophil % 0.8 %; Hematocrit 36 % (42-52); Hemoglobin 11.9 g/dL (14.0-18.0); Mean Corpuscular HGB Conc 33 g/dL (31-36); Mean Corpuscular Hemoglobin 31 pg (27-31); Mean Corpuscular Volume 94 fL (80-94); Mean Platelet Volume 9.9 fL (7.4-10.4); Nucleated Red Blood Cells % 0.3; Platelet Count 145 10^3/uL (150-450); Red Blood Count 3.85 10^6 /uL (4.18-5.48); Red Cell Distribution Width 14 % (10-15); White Blood Count 6.3 10^3/uL (3.5-10.8)
[2022-03-03 07:50] LABS: Calcium 8.4 mg/dL (8.6-10.3); Creatinine, Serum 0.89 mg/dL (0.67-1.17); Magnesium 2.2 mg/dL (1.9-2.7); Potassium 4.4 mmol/L (3.5-5.0); eGFR CKD-EPI 87.7 (>60)
[2022-03-03 09:04] LABS: Urine Appearance Clear; Urine Bilirubin Negative (Negative); Urine Blood Negative (Negative); Urine Color Yellow; Urine Glucose Negative (Negative); Urine Ketones Negative (Negative); Urine Nitrite Negative (Negative); Urine Protein Negative (Negative); Urine Urobilinogen Negative (Negative)
[2022-03-03 09:29] LABS: Urine Specific Gravity > 1.060 (1.002-1.030)
[2022-03-03] MEDS ORDERED: Amoxicillin/Clavul 875/125 TAB (Augmentin 875 tab) PO SCH (11:00)
[2022-03-03] MEDS: Enoxaparin 40 MG/0.4 ML SYR SUBCUT SCH (12:00)
[2022-03-03] MEDS: metroNIDAZOLE IV 500 MG/100ML 500 MG/100 ML BAG IVPB SCH ×2 (12:08→20:12)
[2022-03-03] MEDS: cefTRIAXone 1 gm/50 mL D5W 1 GM/50 ML BAG IV SCH (12:35)
[2022-03-04] MEDS: metroNIDAZOLE IV 500 MG/100ML 500 MG/100 ML BAG IVPB SCH ×3 (03:34→19:51)
[2022-03-04 07:43] LABS: ABS Eosinophils 0.1 10^3/ul (0-0.6); ABS Lymphocytes 0.9 10^3/ul (1.0-4.8); ABS Monocytes 0.6 10^3/ul (0-0.8); ABS Neutrophils 4.2 10^3/ul (1.5-7.7); Eosinophil % 2.4 %; Hematocrit 34 % (42-52); Hemoglobin 11.4 g/dL (14.0-18.0); Lymphocyte % 14.5 %; Mean Corpuscular HGB Conc 34 g/dL (31-36); Mean Corpuscular Hemoglobin 31 pg (27-31); Mean Corpuscular Volume 92 fL (80-94); Mean Platelet Volume 9.1 fL (7.4-10.4); Nucleated Red Blood Cells % 0.1; Platelet Count 136 10^3/uL (150-450); Red Blood Count 3.68 10^6 /uL (4.18-5.48); Red Cell Distribution Width 13 % (10-15); White Blood Count 5.9 10^3/uL (3.5-10.8)
[2022-03-04 08:03] LABS: Calcium 7.8 mg/dL (8.6-10.3); Creatinine, Serum 0.78 mg/dL (0.67-1.17); Potassium 3.7 mmol/L (3.5-5.0); eGFR CKD-EPI 91.3 (>60)
[2022-03-04] MEDS ORDERED: Potassium EFFERVES 25 meq TAB PO ONE (08:26)
[2022-03-04] MEDS: cefTRIAXone 1 gm/50 mL D5W 1 GM/50 ML BAG IV SCH (13:16)
[2022-03-04] MEDS: Enoxaparin 40 MG/0.4 ML SYR SUBCUT SCH (13:17)
[2022-03-05] MEDS: metroNIDAZOLE IV 500 MG/100ML 500 MG/100 ML BAG IVPB SCH ×3 (03:30→19:10)
[2022-03-05 06:13] LABS: ABS Eosinophils 0.2 10^3/ul (0-0.6); ABS Lymphocytes 0.8 10^3/ul (1.0-4.8); ABS Monocytes 0.5 10^3/ul (0-0.8); ABS Neutrophils 2.1 10^3/ul (1.5-7.7); Eosinophil % 6.1 %; Hematocrit 33 % (42-52); Hemoglobin 11.1 g/dL (14.0-18.0); Lymphocyte % 21.5 %; Mean Corpuscular HGB Conc 33 g/dL (31-36); Mean Corpuscular Hemoglobin 32 pg (27-31); Mean Corpuscular Volume 94 fL (80-94); Platelet Count 125 10^3/uL (150-450); Red Blood Count 3.53 10^6 /uL (4.18-5.48); Red Cell Distribution Width 14 % (10-15); White Blood Count 3.6 10^3/uL (3.5-10.8)
[2022-03-05 06:40] LABS: Calcium 7.8 mg/dL (8.6-10.3); Creatinine, Serum 0.64 mg/dL (0.67-1.17); Potassium 4.1 mmol/L (3.5-5.0); eGFR CKD-EPI 96.9 (>60)
[2022-03-05] MEDS: Enoxaparin 40 MG/0.4 ML SYR SUBCUT SCH (11:44)
[2022-03-05] MEDS: cefTRIAXone 1 gm/50 mL D5W 1 GM/50 ML BAG IV SCH (12:57)
[2022-03-06] MEDS: metroNIDAZOLE IV 500 MG/100ML 500 MG/100 ML BAG IVPB SCH ×2 (03:56→12:38)
[2022-03-06 06:51] LABS: ABS Eosinophils 0.2 10^3/ul (0-0.6); ABS Lymphocytes 0.7 10^3/ul (1.0-4.8); ABS Monocytes 0.5 10^3/ul (0-0.8); Hematocrit 34 % (42-52); Hemoglobin 11.4 g/dL (14.0-18.0); Lymphocyte % 20.4 %; Mean Corpuscular HGB Conc 33 g/dL (31-36); Mean Corpuscular Hemoglobin 31 pg (27-31); Mean Corpuscular Volume 94 fL (80-94); Mean Platelet Volume 10.1 fL (7.4-10.4); Platelet Count 133 10^3/uL (150-450); Red Blood Count 3.63 10^6 /uL (4.18-5.48); Red Cell Distribution Width 13 % (10-15); White Blood Count 3.4 10^3/uL (3.5-10.8)
[2022-03-06 07:10] LABS: Calcium 8.1 mg/dL (8.6-10.3); Creatinine, Serum 0.65 mg/dL (0.67-1.17); Potassium 4.4 mmol/L (3.5-5.0); eGFR CKD-EPI 96.4 (>60)
[2022-03-06 10:24] LABS: Rapid COVID-19 Molecular Undetected (Undetected)
[2022-03-06 12:03] VITALS: BP 108/66
[2022-03-06] MEDS: cefTRIAXone 1 gm/50 mL D5W 1 GM/50 ML BAG IV SCH (12:38)
[2022-03-06] MEDS: Enoxaparin 40 MG/0.4 ML SYR SUBCUT SCH (12:38)
== END 2022-03-06 13:13 | DRG 391 ==
LOC: ED 17:52 → EDHOLD 17:52 → OBSVTOIN 03-03 02:10 → INTOOBSV 03-03 02:10 → SUATTDRO 03-03 02:10 → MEDTELE 03-03 05:38 → UNDODISOB 03-06 13:13
PROVIDERS: ADMIT Internal Medicine; ATTEND Internal Medicine

== ENCOUNTER 2023-09-20 05:39 | Inpatient (IN) ==
[2023-09-20] MEDS ORDERED: Ondansetron 4 mg VIAL 2 MG/ML 2 ml VIAL ONE (06:14)
[2023-09-20] MEDS: Ondansetron 4 mg VIAL 2 MG/ML 2 ml VIAL IV ONE (06:15)
[2023-09-20] MEDS: Lactated Ringers 1000 ml BAG 1,000 ML IV ONE (06:17)
[2023-09-20 06:41] LABS: ABS Eosinophils 0.1 10^3/uL (0.0-0.5); ABS Lymphocytes 1.1 10^3/uL (1.0-4.8); ABS Monocytes 0.7 10^3/uL (0.0-1.1); ABS Neutrophils 3.9 10^3/uL (1.5-7.6); Eosinophil % 1.8 %; Hematocrit 29.3 % (38-53); Hemoglobin 9.9 g/dL (13.2-16.3); Lymphocyte % 19.6 %; Mean Corpuscular Hgb Conc 33.6 g/dL (31-36); Mean Corpuscular Volume 89.4 fL (80-97); Mean Platelet Volume 8.1 fL (7.5-11.2); Platelet Count 223 10^3/uL (150-450); Red Blood Count 3.28 10^6/uL (4.06-5.63); Red Cell Distribution Width 13.8 % (12-17); White Blood Count 5.9 10^3/uL (3.6-10.2)
[2023-09-20] MEDS: Acetaminophen IV 1 GM/100ML 710 MG/71 ML BAG IV ONE (06:46)
[2023-09-20 07:01] LABS: Albumin 3.3 g/dL (3.2-5.2); Albumin/Globulin Ratio 0.7 (1-3); C Reactive Protein 8.69 mg/L (<8.01); Calcium 8.7 mg/dL (8.6-10.3); Creatinine, Serum 0.94 mg/dL (0.67-1.17); Globulin 4.9 g/dL (2-4); Total Bilirubin 0.4 mg/dL (0.2-1.0); Total Protein 8.2 g/dL (6.4-8.9); eGFR CKD-EPI 81.9 (>60)
[2023-09-20 08:01] LABS: Erythrocyte Sed Rate 97 mm/Hr (0-19)
[2023-09-20] MEDS: Piperacillin/Tazobac 3.375 BAG 3.375 GM/100 ML BAG IV ONE (10:30)
[2023-09-20] MEDS: Morphine 2 MG/ML SYRINGE IV ONE (10:59)
[2023-09-20] MEDS ORDERED: LORazepam 2 MG/ML 1 mL Syringe IV PRN (12:22)
[2023-09-20] MEDS ORDERED: Lorazepam PYXIS KEY PRN (12:26)
[2023-09-20 12:27] LABS: PSA Screen Ultra Sensitive 5.914 ng/mL (0-4.000)
[2023-09-20] MEDS: LORazepam 2 mg VIAL 1 ml IV PUSH PRN (12:32)
[2023-09-20] MEDS: Pantoprazole VIAL 40 MG VIAL IV SCH (12:33)
[2023-09-20] MEDS ORDERED: Zosyn per Pharmacy NOTE FOLLOW UP SCH (16:00)
[2023-09-20 16:39] LABS: Folate 19.52 ng/mL (5.90-24.80)
[2023-09-20] MEDS: ZOSYN 3.375 GM Q8H per EXTENDED INFUSION IV SCH (17:00)
[2023-09-20] MEDS: Senna TAB 8.6 mg TAB PO SCH (17:22)
[2023-09-20] MEDS: Heparin 5000 UNITS/ML 1 mL VIAL IV SCH (19:01)
[2023-09-20] MEDS: Heparin DRIP 25,000 UNITS BAG 25,000 UNITS/250 ML BAG IV SCH (19:02)
[2023-09-20] MEDS: Lactated Ringers 1000 ml BAG 1,000 ML IV SCH (20:49)
[2023-09-20] MEDS: Polyethylene Glycol 3350 17 GM PACKET PO SCH (23:00)
[2023-09-21] MEDS: ZOSYN 3.375 GM Q8H per EXTENDED INFUSION IV SCH (00:32)
[2023-09-21 07:10] LABS: ABS Lymphocytes 0.6 10^3/uL (1.0-4.8); ABS Monocytes 0.6 10^3/uL (0.0-1.1); ABS Neutrophils 8.8 10^3/uL (1.5-7.6); Eosinophil % 0.1 %; Hematocrit 31.8 % (38-53); Hemoglobin 10.7 g/dL (13.2-16.3); Lymphocyte % 5.8 %; Mean Corpuscular Hemoglobin 30.2 pg (27-33); Mean Corpuscular Hgb Conc 33.7 g/dL (31-36); Mean Corpuscular Volume 89.7 fL (80-97); Platelet Count 215 10^3/uL (150-450); Red Blood Count 3.55 10^6/uL (4.06-5.63)
[2023-09-21 07:39] LABS: Calcium 8.3 mg/dL (8.6-10.3); Creatinine, Serum 0.81 mg/dL (0.67-1.17); Magnesium 1.7 mg/dL (1.9-2.7); Phosphorus 3.5 mg/dL (2.5-5.0); Potassium 4.3 mmol/L (3.5-5.0); eGFR CKD-EPI 89.1 (>60)
[2023-09-21] MEDS: Lactated Ringers 1000 ml BAG 1,000 ML IV ONE (12:09)
[2023-09-21 13:21] LABS: ABS Basophils 0.1 10^3/uL (0.0-0.1); ABS Lymphocytes 0.6 10^3/uL (1.0-4.8); ABS Monocytes 0.6 10^3/uL (0.0-1.1); ABS Nucleated RBC 0.01 10^3/ul; Hematocrit 30.7 % (38-53); Hemoglobin 9.9 g/dL (13.2-16.3); Lymphocyte % 5.3 %; Mean Corpuscular Hemoglobin 29.1 pg (27-33); Mean Corpuscular Hgb Conc 32.3 g/dL (31-36); Mean Corpuscular Volume 89.9 fL (80-97); Mean Platelet Volume 8.3 fL (7.5-11.2); Platelet Count 205 10^3/uL (150-450); Red Blood Count 3.42 10^6/uL (4.06-5.63); White Blood Count 11.3 10^3/uL (3.6-10.2)
[2023-09-21 13:37] LABS: Albumin/Globulin Ratio 0.7 (1-3); Calcium 8.1 mg/dL (8.6-10.3); Creatinine, Serum 0.87 mg/dL (0.67-1.17); Globulin 4.4 g/dL (2-4); Potassium 4.1 mmol/L (3.5-5.0); Total Protein 7.4 g/dL (6.4-8.9); eGFR CKD-EPI 87.2 (>60)
[2023-09-21] MEDS: Morphine 2 MG/ML SYRINGE IV PRN (15:57)
[2023-09-21 16:50] LABS: Urine Appearance Turbid; Urine Bacteria Absent /HPF (Absent); Urine Bilirubin Negative (Negative); Urine Blood 3+ (Negative); Urine Glucose Negative (Negative); Urine Ketones Negative (Negative); Urine Nitrite Negative (Negative); Urine Protein 1+ (>=30 mg/dL) (Negative); Urine Red Blood Cell 3+(>10/hpf) /HPF (0-Trace); Urine Specific Gravity 1.031 (1.002-1.030); Urine Urobilinogen Negative (Negative); Urine White Blood Cell 3+(>20/hpf) /HPF (0-Trace); Urine pH 6.5 (5.0-8.0)
[2023-09-21] MEDS: Iohexol 300 (CONTRAST) 10 ML SDV IV ONE (17:28)
[2023-09-21] MEDS ORDERED: Norepinephrine IV 1 MG/ML 4 ML VIAL ONE (18:11)
[2023-09-21] MEDS ORDERED: Etomidate 20 mg/10 ml 2 MG/ML 10 ml VIAL ONE (18:16)
[2023-09-21 18:33] LABS: Urine Color Dark-Red
[2023-09-21] MEDS: Acetaminophen IV 1 GM/100ML 1,000 MG/100 ML BAG IV PRN (20:14)
[2023-09-21 20:57] LABS: ABS Lymphocytes 0.5 10^3/uL (1.0-4.8); ABS Monocytes 0.6 10^3/uL (0.0-1.1); ABS Neutrophils 10.2 10^3/uL (1.5-7.6); Hemoglobin 9.5 g/dL (13.2-16.3); Lymphocyte % 4.7 %; Mean Corpuscular Hemoglobin 29.1 pg (27-33); Mean Corpuscular Hgb Conc 32.6 g/dL (31-36); Mean Corpuscular Volume 89.3 fL (80-97); Mean Platelet Volume 7.9 fL (7.5-11.2); Platelet Count 188 10^3/uL (150-450); Red Blood Count 3.25 10^6/uL (4.06-5.63); Red Cell Distribution Width 13.8 % (12-17); White Blood Count 11.3 10^3/uL (3.6-10.2)
[2023-09-21 21:19] LABS: Creatinine, Serum 0.94 mg/dL (0.67-1.17); eGFR CKD-EPI 81.9 (>60)
[2023-09-21] MEDS: Heparin DRIP 25,000 UNITS BAG 25,000 UNITS/250 ML BAG IV SCH (21:39)
[2023-09-22 06:43] LABS: ABS Lymphocytes 0.8 10^3/uL (1.0-4.8); ABS Monocytes 0.8 10^3/uL (0.0-1.1); ABS Neutrophils 12.2 10^3/uL (1.5-7.6); ABS Nucleated RBC 0.01 10^3/ul; Hematocrit 34.1 % (38-53); Hemoglobin 11.1 g/dL (13.2-16.3); Lymphocyte % 5.9 %; Mean Corpuscular Hemoglobin 29.7 pg (27-33); Mean Corpuscular Hgb Conc 32.6 g/dL (31-36); Mean Corpuscular Volume 91.1 fL (80-97); Platelet Count 186 10^3/uL (150-450); Red Blood Count 3.74 10^6/uL (4.06-5.63); Red Cell Distribution Width 14.2 % (12-17); White Blood Count 13.9 10^3/uL (3.6-10.2)
[2023-09-22] MEDS: Iohexol 350 (CONTRAST) 500 ML MDV IV ONE (14:32)
[2023-09-22] MEDS ORDERED: Morphine 2 MG/ML SYRINGE IV PRN (19:06)
[2023-09-22] MEDS ORDERED: LORazepam 2 mg VIAL 1 ml IV PUSH PRN (19:06)
[2023-09-22] MEDS ORDERED: Lorazepam PYXIS KEY PRN (19:06)
[2023-09-22] MEDS: LORazepam 2 mg VIAL 1 ml IV PUSH ONE (21:48)
[2023-09-23 06:27] LABS: ABS Basophils 0.1 10^3/uL (0.0-0.1); ABS Lymphocytes 0.4 10^3/uL (1.0-4.8); ABS Monocytes 0.7 10^3/uL (0.0-1.1); ABS Neutrophils 12.2 10^3/uL (1.5-7.6); ABS Nucleated RBC 0.01 10^3/ul; Eosinophil % 0.2 %; Hematocrit 30.5 % (38-53); Hemoglobin 9.9 g/dL (13.2-16.3); Lymphocyte % 3.1 %; Mean Corpuscular Hemoglobin 29.2 pg (27-33); Mean Corpuscular Hgb Conc 32.4 g/dL (31-36); Mean Corpuscular Volume 90.2 fL (80-97); Mean Platelet Volume 8.4 fL (7.5-11.2); Platelet Count 193 10^3/uL (150-450); Red Blood Count 3.39 10^6/uL (4.06-5.63); White Blood Count 13.5 10^3/uL (3.6-10.2)
[2023-09-23 07:05] LABS: Albumin 2.5 g/dL (3.2-5.2); Albumin/Globulin Ratio 0.6 (1-3); C Reactive Protein 146.89 mg/L (<8.01); Calcium 7.8 mg/dL (8.6-10.3); Creatinine, Serum 0.98 mg/dL (0.67-1.17); Globulin 3.9 g/dL (2-4); Magnesium 1.7 mg/dL (1.9-2.7); Potassium 3.6 mmol/L (3.5-5.0); Total Bilirubin 0.7 mg/dL (0.2-1.0); Total Protein 6.4 g/dL (6.4-8.9)
[2023-09-23] MEDS: Pantoprazole VIAL 40 MG VIAL IV SCH (08:06)
[2023-09-23] MEDS: D5LR 1000 ml BAG 1,000 ML IV SCH (10:37)
[2023-09-23] MEDS: Magnesium Sulfate 2 gm BAG 2 GM/50 ML BAG IVPB ONE (10:38)
[2023-09-23] MEDS: Morphine 2 MG/ML SYRINGE IV PRN (14:17)
[2023-09-23] MEDS: Iohexol 350 (CONTRAST) 500 ML MDV IV ONE (15:10)
[2023-09-24 06:23] LABS: Hemoglobin 9.5 g/dL (13.2-16.3); Mean Corpuscular Hemoglobin 29.9 pg (27-33); Mean Corpuscular Hgb Conc 32.8 g/dL (31-36); Mean Corpuscular Volume 91.3 fL (80-97); Red Blood Count 3.17 10^6/uL (4.06-5.63); Red Cell Distribution Width 14.1 % (12-17); White Blood Count 11.2 10^3/uL (3.6-10.2)
[2023-09-24 06:44] LABS: Albumin 2.4 g/dL (3.2-5.2); Albumin/Globulin Ratio 0.6 (1-3); Calcium 7.7 mg/dL (8.6-10.3); Creatinine, Serum 0.75 mg/dL (0.67-1.17); Globulin 3.8 g/dL (2-4); Potassium 3.4 mmol/L (3.5-5.0); Total Bilirubin 0.7 mg/dL (0.2-1.0); Total Protein 6.2 g/dL (6.4-8.9); eGFR CKD-EPI 91.2 (>60)
[2023-09-24 07:17] LABS: ABS Eosinophils 0.1 10^3/uL (0.0-0.5); ABS Lymphocytes 0.6 10^3/uL (1.0-4.8); ABS Monocytes 1.1 10^3/uL (0.0-1.1); ABS Neutrophils 9.3 10^3/uL (1.5-7.6); Eosinophil % 1.1 %; Lymphocyte % 5.7 %; Mean Platelet Volume 9.4 fL (7.5-11.2); Platelet Count 163 10^3/uL (150-450)
[2023-09-24] MEDS: KCL 20 MEQ/100 ML IVPREMIX 20 MEQ/100 ML BAG IV SCH (09:27)
[2023-09-24] MEDS: Lactated Ringers 1000 ml BAG 1,000 ML IV SCH (12:06)
[2023-09-24] MEDS: fentaNYL 100 mcg/2 ml 50 MCG/ML VIAL ONE (19:00)
[2023-09-25 06:36] LABS: Hematocrit 26.7 % (38-53); Hemoglobin 9.2 g/dL (13.2-16.3); Mean Corpuscular Hgb Conc 34.5 g/dL (31-36); Mean Corpuscular Volume 89.7 fL (80-97); Mean Platelet Volume 7.9 fL (7.5-11.2); Platelet Count 211 10^3/uL (150-450); Red Blood Count 2.97 10^6/uL (4.06-5.63); Red Cell Distribution Width 13.9 % (12-17); White Blood Count 6.4 10^3/uL (3.6-10.2)
[2023-09-25 06:41] LABS: INR 1.2 (0.83-1.13)
[2023-09-25 07:23] LABS: Calcium 7.5 mg/dL (8.6-10.3); Creatinine, Serum 0.68 mg/dL (0.67-1.17); Magnesium 1.7 mg/dL (1.9-2.7); Phosphorus 2.4 mg/dL (2.5-5.0)
[2023-09-25] MEDS: Magnesium Sulfate 2 gm BAG 2 GM/50 ML BAG IVPB ONE (08:46)
[2023-09-25] MEDS: Magnesium Sulfate IV 1GM/100ML 1 GM/100 ML BAG IV ONE (11:31)
[2023-09-25] MEDS ORDERED: Morphine 2 MG/ML SYRINGE IV PRN (14:47)
[2023-09-25] MEDS: Polyethylene Glycol 3350 17 GM PACKET PO SCH (15:20)
[2023-09-25] MEDS: Enoxaparin 40 MG/0.4 ML SYR SUBCUT SCH (17:02)
[2023-09-26 06:55] LABS: ABS Eosinophils 0.3 10^3/uL (0.0-0.5); ABS Lymphocytes 0.7 10^3/uL (1.0-4.8); ABS Monocytes 0.8 10^3/uL (0.0-1.1); ABS Neutrophils 3.1 10^3/uL (1.5-7.6); ABS Nucleated RBC 0.01 10^3/ul; Eosinophil % 6.8 %; Hematocrit 26.5 % (38-53); Lymphocyte % 14.2 %; Mean Corpuscular Hemoglobin 30.4 pg (27-33); Mean Corpuscular Volume 89.6 fL (80-97); Mean Platelet Volume 8.2 fL (7.5-11.2); Nucleated Red Blood Cells % 0.2 %/100WBC (0.0-0.8); Platelet Count 219 10^3/uL (150-450); Red Blood Count 2.96 10^6/uL (4.06-5.63); Red Cell Distribution Width 13.9 % (12-17); White Blood Count 4.9 10^3/uL (3.6-10.2)
[2023-09-26 08:17] LABS: Calcium 7.4 mg/dL (8.6-10.3); Creatinine, Serum 0.64 mg/dL (0.67-1.17); Magnesium 1.9 mg/dL (1.9-2.7); Potassium 3.4 mmol/L (3.5-5.0); eGFR CKD-EPI 95.7 (>60)
[2023-09-27 06:33] LABS: Hematocrit 27.2 % (38-53); Hemoglobin 9.3 g/dL (13.2-16.3); Mean Corpuscular Hemoglobin 30.3 pg (27-33); Mean Corpuscular Hgb Conc 34.1 g/dL (31-36); Mean Corpuscular Volume 88.9 fL (80-97); Mean Platelet Volume 7.8 fL (7.5-11.2); Platelet Count 265 10^3/uL (150-450); Red Blood Count 3.06 10^6/uL (4.06-5.63)
[2023-09-27 07:03] LABS: Calcium 7.7 mg/dL (8.6-10.3); Creatinine, Serum 0.61 mg/dL (0.67-1.17); Magnesium 1.7 mg/dL (1.9-2.7); Potassium 3.9 mmol/L (3.5-5.0); eGFR CKD-EPI 97.1 (>60)
[2023-09-27] MEDS: Potassium Chlor 20 meq TAB.ER PO ONE (09:24)
[2023-09-27] MEDS: Magnesium Sulf 4 GM/100 ML IV 4,000 MG/100 ML BAG IVPB ONE (09:30)
[2023-09-28 06:21] LABS: Hematocrit 26.5 % (38-53); Hemoglobin 9.2 g/dL (13.2-16.3); Mean Corpuscular Hemoglobin 30.8 pg (27-33); Mean Corpuscular Hgb Conc 34.6 g/dL (31-36); Mean Platelet Volume 7.5 fL (7.5-11.2); Platelet Count 290 10^3/uL (150-450); Red Blood Count 2.98 10^6/uL (4.06-5.63); Red Cell Distribution Width 14.3 % (12-17); White Blood Count 5.6 10^3/uL (3.6-10.2)
[2023-09-28 06:39] LABS: Calcium 7.4 mg/dL (8.6-10.3); Creatinine, Serum 0.64 mg/dL (0.67-1.17); Potassium 4.3 mmol/L (3.5-5.0); eGFR CKD-EPI 95.7 (>60)
[2023-09-28] MEDS: Amoxicillin/Clavul 875/125 TAB (Augmentin 875 tab) PO SCH (10:16)
[2023-09-28 10:22] VITALS: BP 136/85
== END 2023-09-28 13:30 | DRG 872 ==
LOC: EDHOLD 05:39 → ED 05:39 → SUATTDRO 10:23 → EDHOLD 22:05 → MED 23:36 → SUATTDRO 09-22 10:39
PROVIDERS: ADMIT Internal Medicine; ATTEND Student in an Organized Health Care Education/Training Program